=== PATIENT | female | born 1975 ===

== ENCOUNTER 2019-12-25 19:30 | Inpatient (IN) | payer MEDICARE, MEDICAID, SELFPAY ==
[2019-12-25 20:21] VITALS: BP 97/61; PULSE 118; RESP 19; TEMP 37; O2SAT 97
[2019-12-25 22:00] VITALS: BP 97/61; PULSE 118; RESP 19; TEMP 37; O2SAT 97
[2019-12-25 22:55] VITALS: BMI 22.6
[2019-12-25 22:57] VITALS: BMI 22.6
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
[2019-12-26 06:00] VITALS: RESP 18
[2019-12-26 21:35] VITALS: RESP 26
[2019-12-27 06:00] VITALS: BP 136/82; PULSE 89; RESP 22; TEMP 36.6; O2SAT 94
[2019-12-27] MEDS: ziprasidone hcl 40 mg Capsule PO ×2 (11:03→17:01)
--- NOTE | 2019-12-27 12:34 | P.PN_ITS ---
Subjective NPU Subjective: Interval history: Laura presented today continuing to be quite combative and frankly psychotic with limited clarity in her interactions with this sheet writer or others there are multiple situations where we had to work very hard to get her to comply with rules including returning small pencil after she made her selections for meals etc. We discussed the risks benefits and alternatives of restarting her medications including an increase in her Geodon but is unclear if she understood but she agreed to proceed as documented in this note receiving her medication. Mental Status Exam MSE Comments: This is a underweight white female in a wheelchair with limited dress, disheveled with adequate eye contact. No abnormal movements except for psychomotor agitation. Intermittently cooperative with exam in occasional mild to moderate distress. Speech was dysarthric and increased rate and volume that sometimes and whispering at others. Mood described as upset, affect and labile. Thought process disorganized. Thought content: Patient did not answer questions but then at times have aggression towards herself and others, there were no delusions reported but she does seem to have paranoia and is guarded at times. She does not appear to be attending to internal stimuli. Attention and concentration are impaired and memory is unreliable but none were formally tested. She is alert and oriented to person. Insight and judgment are impaired. Vitals/I&O/Wt Last Vital Signs Temp 97.8 F 12/27/19 06:00 Pulse 89 12/27/19 06:00 Resp 17 12/27/19 22:00 BP 136/82 12/27/19 06:00 Pulse Ox 94 12/27/19 06:00 A&P Assessment and plan (1) Psychosis: Status: Acute (2) Schizophrenia: Status: Acute (3) Methamphetamine dependence: Status: Acute Additional A&P Information This is a 44-year-old white female who presents with a long history of addiction including methamphetamine dependence/use with juan psychosis with reported history of psychotic disorder vis-?-vis schizophrenia who presents quite disorganized, aggressive and apparently off of her medication. 1. Continue current medication. Except: 2. Restart Geodon at 40 mg p.o. twice daily and continue her Depakote with Depakote ER 500 mg p.o. nightly 3. Encourage individual group and milieu therapy. 4. Continue to 15-minute checks for safety. 5. We will work with social work team for appropriate follow-up. Involuntary Hold Information 96 Hour Hold: 96 Hour Involuntary Admission: Yes 96 Hour Hold Ending Date: 12/31/19 96 Hour Hold Ending Time: 19:27 Attestations NPU Medical Necessity Statement*: Inpatient hospitalization is medically necessary and the clinically appropriate intervention at this time we will monitor medications and make changes as indicated. Likely length of stay 4-6 days. Coding Level of Care Code Acute Medication Technician for [facility] Fwd Diagnoses Psychosis F29 Schizophrenia F20.9 Methamphetamine dependence F15.20
[2019-12-27 14:00] VITALS: RESP 16
[2019-12-27] MEDS: LORazepam 2 mg/mL INJ 1 mL IM (14:59)
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
[2019-12-27] MEDS: trazodone 50 mg Tablet PO (20:50)
[2019-12-27 22:00] VITALS: RESP 17
--- NOTE | 2019-12-27 23:00 | PC.NURSE ---
PT REFUSED HS SCHEDULED MED.
--- NOTE | 2019-12-27 23:00 | PC.NURSE ---
pt refused scheduled hs med.
[2019-12-28 06:00] VITALS: BP 92/56; PULSE 112; RESP 22; TEMP 36.7; O2SAT 98
[2019-12-28] MEDS: ziprasidone hcl 40 mg Capsule PO ×2 (07:53→16:47)
[2019-12-28] MEDS: hyDROXYzine 25 mg Capsule 50 MG PO ×2 (09:01→17:03)
--- NOTE | 2019-12-28 09:01 | PC.NURSE ---
Addendum entered by Shaila Lozada LPN 12/28/19 10:13: PRN MED NOT YET EFFECTIVE SEE NEXT NURSES NOTE Original Note: PRN VISTARIL 50 MG GIVEN PO PER PT C/O ANXIETY. PT TEARFUL UP AT THE DESK, REQUESTING ANXIETY MED TOOK MEDICATION WITHOUT INCIDENT. WILL CONT TO MONITOR
[2019-12-28] MEDS: OLANZapine 5 mg ODT PO (10:10)
--- NOTE | 2019-12-28 10:10 | PC.NURSE ---
PRN ZYPREXA ZYDIS 5 MG GIVEN PO PER PT C/O AGITATION. PT STATED THAT THE PRN VISTARIL GIVEN PREVIOUSLY DIDN'T HELP HER! ALMOST GAVE HER THE OPPOSITE EFFECT! PT TOOK PRN ZYPREXA WITH STAFF ENCOURAGEMENT, LOOKED AT THE PACKAGE OF ZYPREXA AND SAID ABOUT TIME I GET SOMETHING FUCKING RIGHT AROUND HERE! WILL CONT TO MONITOR
--- NOTE | 2019-12-28 11:40 | P.PN_ITS ---
Subjective NPU Subjective: Interval history: Laura presents today continuing to be quite disorganized and resistant to taking her medication. She is continuing to fight staff and be quite repugnant and her language and demeanor. She continues with juan psychosis and inability to truly engage in treatment. Mental Status Exam MSE Comments: This is a underweight white female in a wheelchair with limited dress, disheveled with adequate eye contact. No abnormal movements except for psychomotor agitation. Intermittently cooperative with exam in occasional mild to moderate distress. Speech was dysarthric and increased rate and volume that sometimes and whispering at others. Mood described as expletives, affect labile. Thought process disorganized. Thought content: Patient did not answer questions but then at times have aggression towards herself and others, there were no delusions reported but she does seem to have paranoia and is guarded at times. She does not appear to be attending to internal stimuli. Attention and concentration are impaired and memory is unreliable but none were formally tested. She is alert and oriented to person. Insight and judgment are impaired. Vitals/I&O/Wt Last Vital Signs Temp 98.0 F 12/28/19 06:00 Pulse 112 H 12/28/19 06:00 Resp 22 H 12/28/19 06:00 BP 92/56 12/28/19 06:00 Pulse Ox 98 12/28/19 06:00 Weight last 48 hrs Weight 52.163 kg A&P Additional A&P Information (1) Psychosis: (2) Schizophrenia: (3) Methamphetamine dependence: This is a 44-year-old white female who presents with a long history of addiction including methamphetamine dependence/use with juan psychosis with reported history of psychotic disorder vis-?-vis schizophrenia who presents quite disorganized, aggressive and apparently off of her medication. 1. Continue current medication. 2. Encourage individual group and milieu therapy. 3. Continue to 15-minute checks for safety. 4. We will work with social work team for appropriate follow-up. 5. We will need to file for 21-day hold because likely only through force medication will be impact her situation psychiatrically. Involuntary Hold Information 96 Hour Hold: 96 Hour Involuntary Admission: Yes 96 Hour Hold Ending Date: 12/31/19 96 Hour Hold Ending Time: 19:27 Attestations NPU Medical Necessity Statement*: Inpatient hospitalization is medically necessary and the clinically appropriate intervention at this time we will monitor medications and make changes as indicated. Likely length of stay 7-10 days. Coding Level of Care Code Acute Safe Deposit Box Rental Clerk for [facility]
--- NOTE | 2019-12-28 11:53 | PC.SOCIAL ---
Addendum entered by RAUL uY 01/01/20 15:15: Notified Dr. Springer of court date since he will be taking over her care that morning. Original Note: no important message for medicare signed yet because she is not stable enough to even sign it. she is on a 96 hour hold.
[2019-12-28 13:57] VITALS: BP 102/72; PULSE 114; RESP 18; TEMP 36.7; O2SAT 97
[2019-12-28] MEDS: ziprasidone 20 mg/mL SDV IM (15:24)
--- NOTE | 2019-12-28 15:25 | PC.NURSE ---
Addendum entered by Shaila Lozada LPN 12/28/19 17:21: prn med effective no further c/o agitation. Original Note: PRN GEODON GEODON 20 MG GIVEN IM IN RIGHT BUTTOCK PER PT C/O SEVERE AGITATION/AGGRESSION. PT VERY AGITATED, CALLING STAFF CUNTS AND CURSING AT STAFF SAYING FUCK YOU BITCH STAFF ATTEMPTED TO HELP PT CHANGE INTO CLEAN UNDERWEAR, PT GETTING VIOLENT, HITTING & KICKING AT STAFF. TOOK SHOT AFTER MUCH STAFF ENCOURAGEMENT. PT PUT INTO CLEAN UNDERWEAR & SCRUB PANTS AND ASSISTED BACK TO BED WITH STAFF ASSIST X4. WILL CONT TO MONITOR.
--- NOTE | 2019-12-28 17:03 | PC.NURSE ---
Addendum entered by Shaila Lozada LPN 12/28/19 18:23: prn med effective no further c/o anxiety, pt currently resting quietly in bed in room, eyes closed, resp even et unlabored Original Note: PRN VISTARIL 50 MG GIVEN PO PER PT C/O ANXIETY. PT ASKING FOR SLEEPING MEDICINE TO HELP HER RELAX. TEARFUL AT TIMES, RAPID & RAMBLING SPEECH. WILL CONT TO MONITOR
[2019-12-28 22:00] VITALS: RESP 22
[2019-12-29 06:00] VITALS: BP 112/60; PULSE 107; RESP 23; O2SAT 96
--- NOTE | 2019-12-29 09:00 | PC.NURSE ---
DATABASES SOFTWARE CONSULTANT ATTEMPTED SEVERAL TIMES TO GET PT TO TAKE ORAL GEODON. PT RESISTANT AND WOULD HOLD MEDICATION CUP IN HER HAND. VOICED YO PT THAT DATABASES SOFTWARE CONSULTANT WOULD PLACE IN [place] AND GIVE HER AND SHE SAID OKAY. RETREIVED [place] BUT PT CONTINUED TO REFUSE. BEGAN YELLING AND CURSING TO DATABASES SOFTWARE CONSULTANT AND OTHER STAFF AND MUMBLING NON-SENSICAL WORDS.
[2019-12-29] MEDS: ziprasidone 20 mg/mL SDV IM (11:55)
--- NOTE | 2019-12-29 11:55 | PC.NURSE ---
PT WAS DISRUPTIVE AND SPITTING,CURSING AND RESISTING BEING CHANGED OUT OF HER WET/BLOODY CLOTHES. AUTOMOTIVE PORTER ADMINISTERED GEODON 20 MG IM X1 IN LEFT DELTOID. WILL CONT TO MONITOR AND FOLLOW UP NEEDED
--- NOTE | 2019-12-29 12:30 | PC.NURSE ---
CURRENTLY PT RESTING IN BED WITH EYES CLOSED. NO DISTRESS NOTED.
--- NOTE | 2019-12-29 13:40 | P.PN_ITS ---
Subjective NPU Subjective: Interval history: Laura continue to be combative at times. At times requiring as needed medications. Needing staff interventions for self care and at times putting her hands in orifices and trying to either touch or put the contents on people. Usually not redirectable grossly disorganized. Mental Status Exam MSE Comments: This is a underweight white female in a wheelchair with limited dress, disheveled with adequate eye contact. No abnormal movements except for psychomotor agitation. Intermittently cooperative with exam in occasional mild, moderate to extreme distress. Speech was dysarthric and increased rate and volume that sometimes and whispering at others. Mood described as expletives, affect labile. Thought process disorganized. Thought content: Patient did not answer questions but then at times have aggression towards herself and others, there were no delusions reported but she does seem to have paranoia and is guarded at times. She does not appear to be attending to internal stimuli. Attention and concentration are impaired and memory is unreliable but none were formally tested. She is alert and oriented to person. Insight and judgment are impaired. Vitals/I&O/Wt Last Vital Signs Temp 98.1 F 12/29/19 14:00 Pulse 107 H 12/29/19 14:00 Resp 23 H 12/29/19 14:00 BP 112/60 12/29/19 14:00 Pulse Ox 96 12/29/19 14:00 Weight last 48 hrs Weight 52.163 kg A&P Additional A&P Information (1) Psychosis: (2) Schizophrenia: (3) Methamphetamine dependence: This is a 44-year-old white female who presents with a long history of addiction including methamphetamine dependence/use with juan psychosis with reported history of psychotic disorder vis-?-vis schizophrenia who presents quite disorganized, aggressive and apparently off of her medication. 1. Continue current medication. 2. Encourage individual group and milieu therapy. 3. Continue to 15-minute checks for safety. 4. We will work with social work team for appropriate follow-up. 5. We will need to file for 21-day hold because likely only through force medication will be impact her situation psychiatrically. Involuntary Hold Information 96 Hour Hold: 96 Hour Involuntary Admission: Yes 96 Hour Hold Ending Date: 12/31/19 96 Hour Hold Ending Time: 19:27 Attestations NPU Medical Necessity Statement*: Inpatient hospitalization is medically necessary and the clinically appropriate intervention at this time we will monitor med [facility] and make changes as indicated. Likely length of stay 7-10 days. Coding Level of Care Code Acute Weight Control Engineer for [facility]
[2019-12-29 14:00] VITALS: BP 112/60; PULSE 107; RESP 23; TEMP 36.7; O2SAT 96
--- NOTE | 2019-12-29 17:00 | PC.NURSE ---
DIRECTOR TEEN POST ATTEMPTED TO ADMINISTER GEODON TO PT BUT PT TOOK AND PUT MED IN HER HAND DIRECTOR TEEN POST HANDED PT A GLASS OF WATER,BUT PT DUMPED WATER AND WOULDN'T PLACE MEDICATION IN HER MOUTH. STARTED TO CRUMBLE PILL BUT DIRECTOR TEEN POST RETRIEVED MEDICATION.
[2019-12-29] MEDS: divalproex ER 500 mg Tablet (24H) PO (21:39)
[2019-12-29] MEDS: trazodone 50 mg Tablet PO (21:45)
--- NOTE | 2019-12-29 22:45 | PC.NURSE ---
PT REFUSED SCHEDULED HS MED.
[2019-12-30 06:00] VITALS: BP 107/64; PULSE 88; RESP 19; TEMP 36.3; O2SAT 95
[2019-12-30] MEDS: ziprasidone hcl 40 mg Capsule PO ×2 (08:17→18:29)
--- NOTE | 2019-12-30 09:00 | PC.NURSE ---
Refused scheduled Geodon this morning at 0900. pt took pill in her mouth, refused to do oral check that she actually swallowed medication. staff went to hand pt drink of water, staff observed pt take her hand to her mouth. this nurse suspected that pt spit pill into hand. staff asked pt to please open her closed fist so staff could observe and make sure that no pill was in hand. pt opened arms wide and opened palms quickly, staff did not see any pill in hand at that time. breakfast tray was left in room so pt could eat in private. when staff picked up breakfast tray 30-40 minutes later, staff found Geodon pill wrapped up in napkin. staff disposed pill into sharps box at the nurses station. banquet server notified of behavior & that pt did not take pill.
[2019-12-30 14:00] VITALS: BP 112/72; PULSE 82; RESP 19; TEMP 36.4
[2019-12-30] MEDS: ziprasidone 20 mg/mL SDV IM (14:44)
--- NOTE | 2019-12-30 14:44 | PC.NURSE ---
PRN GEODON 20 MG GIVEN IM IN LEFT BUTTOCK PER PT C/O INCREASED AGITATION. CURSING AT STAFF, CALLING STAFF BITCHES AND SAYING I'LL KILL YOU IF YOU DON'T LEAVE BITCH. PT HAD BOWEL MOVEMENT, INCONTINENT OF BOWEL/BLADDER. STAFF X4 ASSISTED PT TO CHANGE INTO CLEAN UNDERWEAR AND PANTS. PT ASSISTED SAFELY BACK INTO HER WHEELCHAIR. TOOK INJECTION WITHOUT INCIDENT. WILL CONT TO MONITOR.
--- NOTE | 2019-12-30 16:28 | P.PN_ITS ---
Subjective NPU Subjective: Interval history: Laura continue to be combative at times. At times requiring as needed medications. Needing staff interventions for self care and at times putting her hands in orifices and trying to either touch or put the contents on people. Usually not redirectable grossly disorganized. At times incontinent of urine and feces. Unchanged and often not taking her medication to some degree willfully. Mental Status Exam MSE Comments: This is a underweight white female in a wheelchair with limited dress, disheveled with adequate eye contact. No abnormal movements except for psychomotor agitation. Intermittently cooperative with exam in occasional mild, moderate to extreme distress. Speech was dysarthric and increased rate and volume that sometimes and whispering at others. Mood described as expletives, affect labile. Thought process disorganized. Thought content: Patient did not answer questions but then at times have aggression towards herself and others, there were no delusions reported but she does seem to have paranoia and is guarded at times. She does not appear to be attending to internal stimuli. Attention and concentration are impaired and memory is unreliable but none were formally tested. She is alert and oriented to person. Insight and judgment are impaired. Vitals/I&O/Wt Last Vital Signs Temp 97.6 F 12/30/19 14:00 Pulse 82 12/30/19 14:00 Resp 17 12/30/19 19:57 BP 112/72 12/30/19 14:00 Pulse Ox 95 12/30/19 06:00 12/30/19 12/30/19 12/31/19 14:59 22:59 06:59 Intake Total 120 / 120 Balance 120 / 120 Weight last 48 hrs Weight 52.163 kg A&P Additional A&P Information (1) Psychosis: (2) Schizophrenia: (3) Methamphetamine dependence: This is a 44-year-old white female who presents with a long history of addiction including methamphetamine dependence/use with juan psychosis with reported history of psychotic disorder vis-?-vis schizophrenia who presents quite disorganized, aggressive and apparently off of her medication. 1. Continue current medication. 2. Encourage individual group and milieu therapy. 3. Continue to 15-minute checks for safety. 4. We will work with social work team for appropriate follow-up. 5. We will need to file for 21-day hold tomorrow because likely only through force medication will be impact her situation psychiatrically. Involuntary Hold Information 96 Hour Hold: 96 Hour Involuntary Admission: Yes 96 Hour Hold Ending Date: 12/31/19 96 Hour Hold Ending Time: 19:27 Attestations NPU Medical Necessity Statement*: Inpatient hospitalization is medically necessary and the clinically appropriate intervention at this time we will monitor medications and make changes as indicated. Likely length of stay 7-10 days. Coding Level of Care Code Acute Adult Ministries Director for [facility]
[2019-12-30 19:57] VITALS: RESP 17
[2019-12-31 06:00] VITALS: BP 144/100; PULSE 116; RESP 19; TEMP 36.1; O2SAT 96
--- NOTE | 2019-12-31 07:59 | PC.NURSE ---
REFUSED TO TAKE SCHEDULED GEODON THIS MORNING. STAFF ATTEMPTED TO PUT MEDICINE IN [place], PT REFUSED TO TAKE IT. PT ASSISTED BACK TO BED BY STAFF MEMBERS X3.
--- NOTE | 2019-12-31 12:11 | P.PN_ITS ---
Subjective NPU Subjective: Interval history: Laura presents today continuing to speak nonsensical and be a struggle to take medication. She had one level says she does not want to stay but in another level is clearly not able to make informed consent and is just a bucket of impulsivity and her decision making. She continues to speak and aggressive ways with foul language and demonstrate help seeking help rejecting behavior with a psychotic flare. Staff continue to assist her with her ADLs. Mental Status Exam MSE Comments: This is a underweight white female in a wheelchair with limited dress, disheveled with adequate eye contact. No abnormal movements except for psychomotor agitation. Intermittently cooperative with exam in occasional mild, moderate to extreme distress. Speech was dysarthric and increased rate and volume that sometimes and whispering at others. Mood not described, affect labile. Thought process disorganized. Thought content: Patient did not answer questions but then at times have aggression towards herself and others, there were no delusions reported but she does seem to have paranoia and is guarded at times. She does not appear to be attending to internal stimuli. Attention and concentration are impaired and memory is unreliable but none were formally tested. She is alert and oriented to person. Insight and judgment are impaired. Vitals/I&O/Wt Last Vital Signs Temp 97.0 F L 12/31/19 06:00 Pulse 116 H 12/31/19 06:00 Resp 19 H 12/31/19 06:00 BP 144/100 12/31/19 06:00 Pulse Ox 96 12/31/19 06:00 A&P Additional A&P Information (1) Psychosis: (2) Schizophrenia: (3) Methamphetamine dependence: This is a 44-year-old white female who presents with a long history of addiction including methamphetamine dependence/use with juan psychosis with reported history of psychotic disorder vis-?-vis schizophrenia who presents quite disorganized, aggressive and apparently off of her medication. 1. Continue current medication. 2. Encourage individual group and milieu therapy. 3. Continue to 15-minute checks for safety. 4. We will work with social work team for appropriate follow-up. 5. We will need to filed 21-day hold. Involuntary Hold Information 96 Hour Hold: 96 Hour Involuntary Admission: Yes 96 Hour Hold Ending Date: 12/31/19 96 Hour Hold Ending Time: 19:27 Attestations NPU Medical Necessity Statement*: Inpatient hospitalization is medically necessary and the clinically appropriate intervention at this time we will monitor medications and make changes as indicated. Likely length of stay 7-10 days. Coding Level of Care Code Acute Municipal Services Manager for Flori Carlisle
[2019-12-31 14:00] VITALS: RESP 16
--- NOTE | 2019-12-31 17:06 | PC.NURSE ---
refused scheduled Geodon pill this evening
[2019-12-31] MEDS: ziprasidone 20 mg/mL SDV IM (17:07)
--- NOTE | 2019-12-31 17:08 | PC.NURSE ---
PRN GEODON 20 MG GIVEN IM IN RIGHT DELTOID PER PT C/O INCREASED ANXIETY/AGITATION/PSYCHOSIS. PT TALKING NONSENSICAL STATEMENTS AT THE DESK, TOLD STAFF GIVE IT TO HIM SO HE CAN ! I DON'T WANT TO ! WHY DON'T YOU JUST TAKE IT THEN. PT TEARFUL, CURSING AT STAFF AGAIN CALLING NURSING STAFF BITCHES AND HAVING HOSTILE DEMEANOR. TOOK INJECTION WITHOUT INCIDENT. ASSISTED BACK TO BED WITH STAFF ASSIST X3. WILL CONT TO MONITOR
[2019-12-31 21:42] VITALS: PULSE 72; RESP 16; TEMP 37; O2SAT 97
--- NOTE | 2019-12-31 21:58 | PC.NURSE ---
PT REFUSED SCHEDULED HS MED.
[2020-01-01] MEDS: LORazepam 2 mg/mL INJ 1 mL IM (02:12)
--- NOTE | 2020-01-01 02:16 | PC.NURSE ---
CNAs ATTEMPTING TO CHANGE PT'S PULLUP DUE TO INCONTINENCE, PT BECOMING VERY AGITATED AND YELLING VERY LOUDLY AND TRYING TO HIT STAFF WITH HER FISTS. PT GIVEN ATIVAN 2MG IM FOR SEVER AGITATION AT THIS TIME.
[2020-01-01] MEDS: divalproex ER 500 mg Tablet (24H) PO ×2 (03:30→23:04)
[2020-01-01 05:44] VITALS: BP 110/80; PULSE 120; RESP 16; TEMP 36.6; O2SAT 92
[2020-01-01] MEDS: ziprasidone hcl 40 mg Capsule PO ×2 (07:33→17:23)
--- NOTE | 2020-01-01 11:19 | PC.RESP ---
SMOKING CESSATION INFORMATION SENT TO PATIENT.
[2020-01-01 13:27] VITALS: BP 93/58; PULSE 115; RESP 18; TEMP 36.4; O2SAT 99
--- NOTE | 2020-01-01 13:59 | P.PN_ITS ---
Subjective NPU Subjective: Interval history: Discussed with Laura the fact that we were filing a 21-day hold. She did not really seem to identify what that specifically meant but was continuing to behave as she has since her admission with labile affect, cussing at people screaming at people having poor hygiene and at times purposefully forcing other people to deal with her poor hygiene. Mental Status Exam MSE Comments: This is a underweight white female in a wheelchair with limited dress, disheveled with adequate eye contact. No abnormal movements except for psychomotor agitation. Intermittently cooperative with exam in occasional mild, moderate to extreme distress. Speech was dysarthric and increased rate and volume that sometimes and whispering at others. Mood not described, affect labile. Thought process disorganized. Thought content: Patient did not answer questions but then at times have aggression towards herself and others, there were no delusions reported but she does seem to have paranoia and is guarded at times. She does not appear to be attending to internal stimuli. Attention and concentration are impaired and memory is unreliable but none were formally tested. She is alert and oriented to person. Insight and judgment are impaired. Vitals/I&O/Wt Last Vital Signs Temp 98.6 F 01/01/20 22:00 Pulse 110 H 01/01/20 22:00 Resp 16 01/01/20 22:00 BP 105/65 01/01/20 22:00 Pulse Ox 94 01/01/20 22:00 A&P Additional A&P Information (1) Psychosis: (2) Schizophrenia: (3) Methamphetamine dependence: This is a 44-year-old white female who presents with a long history of addiction including methamphetamine dependence/use with juan psychosis with reported history of psychotic disorder vis-?-vis schizophrenia who presents quite disorganized, aggressive and apparently off of her medication. 1. Continue current medication. 2. Encourage individual group and milieu therapy. 3. Continue to 15-minute checks for safety. 4. We will work with social work team for appropriate follow-up. 5. Will advise Dr. Springer of the 21 day hold date. Involuntary Hold Information 96 Hour Hold: 96 Hour Involuntary Admission: Yes 96 Hour Hold Ending Date: 12/31/19 96 Hour Hold Ending Time: 19:27 Attestations NPU Medical Necessity Statement*: Inpatient hospitalization is medically necessary and the clinically appropriate intervention at this time. We will continue to monitor medications and make adjustments as indicated. We will await the 21-day hold determination so that we can make more appropriate medication decisions. Likely length of stay 7 to 10 days. Coding Level of Care Code Acute Emergency Vehicle Operator for Flori Carlisle
[2020-01-01] MEDS: nicotine 21 mg Patch 1 PATCH TRANSDERMA (17:52)
[2020-01-01 22:00] VITALS: BP 105/65; PULSE 110; RESP 16; TEMP 37; O2SAT 94
[2020-01-02] MEDS: OLANZapine 5 mg ODT PO (03:49)
[2020-01-02] MEDS: ondansetron 4 MG Tablet PO (03:49)
[2020-01-02 06:00] VITALS: BP 105/69; PULSE 106; RESP 16; TEMP 36.4; O2SAT 97
[2020-01-02] MEDS: ziprasidone hcl 40 mg Capsule PO (07:58)
[2020-01-02] MEDS: calcium carbonate 500 mg Chew Tablet PO (09:45)
--- NOTE | 2020-01-02 12:06 | PC.SOCIAL ---
patient's belt molder came by to see patient today. hearing for 21 day hold is tomorrow.
[2020-01-02 14:00] VITALS: BP 99/64; PULSE 119; RESP 22; TEMP 37; O2SAT 97
--- NOTE | 2020-01-02 15:02 | PM.NPN ---
Subjective NPU Subjective: Interval history: Laura presented today unchanged and her chaotic behavior. There appears to be no rhyme or reason to how she responds and whether she is welcoming to her presents or dismissive. She very much demands or requests that he spent time with her and then cusses you out or says rude things regardless. She is eating okay but sleep is not great. Mental Status Exam MSE Comments: This is a underweight white female in a wheelchair with limited dress, disheveled with adequate eye contact. No abnormal movements except for psychomotor agitation. Intermittently cooperative with exam in occasional mild, moderate to extreme distress. Speech was dysarthric and increased rate and volume that sometimes and whispering at others. Mood not described, affect labile. Thought process disorganized. Thought content: Patient did not answer questions but then at times have aggression towards herself and others, there were no delusions reported but she does seem to have paranoia and is guarded at times. She does not appear to be attending to internal stimuli. Attention and concentration are impaired and memory is unreliable but none were formally tested. She is alert and oriented to person. Insight and judgment are impaired. Vitals/I&O/Wt Last Vital Signs Temp 97.6 F 01/02/20 06:00 Pulse 106 H 01/02/20 06:00 Resp 16 01/02/20 06:00 BP 105/69 01/02/20 06:00 Pulse Ox 97 01/02/20 06:00 A&P Additional A&P Information (1) Psychosis: (2) Schizophrenia: (3) Methamphetamine dependence: This is a 44-year-old white female who presents with a long history of addiction including methamphetamine dependence/use with juan psychosis with reported history of psychotic disorder vis-?-vis schizophrenia who presents quite disorganized, aggressive and apparently off of her medication. 1. Continue current medication. 2. Encourage individual group and milieu therapy. 3. Continue to 15-minute checks for safety. 4. We will work with social work team for appropriate follow-up. 5. Will advise Dr. Springer of the 21 day hold date. Involuntary Hold Information 96 Hour Hold: 96 Hour Involuntary Admission: Yes 96 Hour Hold Ending Date: 12/31/19 96 Hour Hold Ending Time: 19:27 Attestations NPU Medical Necessity Statement*: Inpatient hospitalization is medically necessary and the clinically appropriate intervention at this time. We will continue to monitor medications and make adjustments as indicated. We will await the 21-day hold determination so that we can make more appropriate medication decisions. Likely length of stay 7 to 10 days. Coding Level of Care Code Acute Display Mechanic for Flori Carlisle
[2020-01-02] MEDS: ziprasidone 20 mg/mL SDV IM (21:49)
[2020-01-02 22:00] VITALS: RESP 26
[2020-01-03 06:00] VITALS: BP 138/89; PULSE 110; RESP 24; TEMP 36.6; O2SAT 98
--- NOTE | 2020-01-03 07:38 | PM.NPN ---
Subjective NPU Subjective: Interval history: The patient has not significantly changed. I came in to see her yesterday in order to familiarize myself with the EMR and to evaluate her prior to today's hearing, which is pending in about an hour. She is quite mercurial, her affect and mood very angry from moment to moment, now jolly and giggling, now distraught and weeping abjectly. As of yesterday, she has been refusing medication, which she desperately needs. We may have to go to [facility]. Nursing staff reports she has not put her hands in her orifices in the last 2 days. I noted with interest, upon review of records from referring hospital, that she was said to have been admitted several times in [place] with diagnosis of delirium. She also is said to have a diagnosis of bipolar disorder with psychosis, which leads me to consider schizoaffective disorder, bipolar type as her underlying pathology. Right now, however, delirium is certainly worthy of consideration. Her working diagnosis here is methamphetamine abuse. However there is no evidence of methamphetamine in her system nor was there in the testing done at the referring hospital. I do not doubt that she will abuse meth at the first opportunity but she has not had any in her system since the beginning of this particular episode. Medications: Reviewed: Yes Medication Review Details: Current Medications Acetaminophen (Tylenol) 650 mg PO Q4H PRN PRN Reason: MILD PAIN Benztropine Mesylate (Cogentin) 1 mg PO BID PRN PRN Reason: Mild Extrapyramidal symptoms Calcium Carbonate (Tums) 500 mg PO Q4H PRN PRN Reason: INDIGESTION Last Admin: 01/02/20 09:45 Dose: 500 mg Documented by: Diphenhydramine HCl (Benadryl) 50 mg IM ONCE PRN PRN Reason: Severe Extrapyramidal Symptoms Diphenhydramine HCl (Benadryl) 50 mg IM Q4H PRN PRN Reason: Severe Aggression Divalproex Sodium (Depakote Er) 500 mg PO BEDTIME BART Last Admin: 01/02/20 21:45 Dose: Not Given Documented by: Hydroxyzine Pamoate (Vistaril) 50 mg PO Q6H PRN PRN Reason: ANXIETY Last Admin: 12/28/19 17:03 Dose: 50 mg Documented by: Loperamide HCl (Imodium Capsule) 2 mg PO Q6H PRN PRN Reason: DIARRHEA Nicotine (Nicoderm 21 Mg Patch) 1 patch TRANSDERMA DAILY PRN PRN Reason: NICOTINE WITHDRAWAL Last Admin: 01/01/20 17:52 Dose: 1 patch Documented by: Olanzapine (Zyprexa Zydis) 5 mg PO Q4H PRN PRN Reason: Agitation/Psychosis Last Admin: 01/02/20 03:49 Dose: 5 mg Documented by: Ondansetron HCl (Zofran) 4 mg PO Q6H PRN PRN Reason: NAUSEA AND VOMITING Last Admin: 01/02/20 03:49 Dose: 4 mg Documented by: Trazodone HCl (Desyrel) 50 mg PO BEDTIME PRN PRN Reason: SLEEP Last Admin: 12/27/19 20:50 Dose: 50 mg Documented by: Ziprasidone (Geodon) 40 mg PO 0800,1700 BART Last Admin: 01/02/20 18:00 Dose: Not Given Documented by: Ziprasidone (Geodon) 20 mg IM BID PRN PRN Reason: severe agitation Last Admin: 01/02/20 21:49 Dose: 20 mg Documented by: Mental Status Exam MSE Comments: This is a 44-year-old female who appears far older than her stated age. She is clearly not in close contact with reality. Mood is rapidly changing, as is affect. Thought processes are utterly scrambled and seemed to be racing. There is certainly no blocking. I do not have direct evidence of any internal stimulation or psychotic material other than the thought disorder. Cognitive functions are completely derailed. The perception of reality is nonexistent and normal cognitive functions cannot be accurately assessed. She does not verbalize any suicidal ideation but she is so deranged is not possible to accurately assess risk of suicidal or homicidal intent. Vitals/I&O/Wt Last Vital Signs Temp 97.8 F 01/03/20 06:00 Pulse 110 H 01/03/20 06:00 Resp 24 H 01/03/20 06:00 BP 138/89 01/03/20 06:00 Pulse Ox 98 01/03/20 06:00 Physical Exam Narrative: EXAM NARRATIVE: Patient is wheelchair-bound. It is not possible to do a formal physical exam but she has been observed by staff to be able to stand, although not walk. A&P Assessment and plan (1) Delirium due to another medical condition, acute, mixed level of activity: Patient is actively delirious now. We need to initiate pharmacotherapy, which she declines. Status: Acute Involuntary Hold Information 96 Hour Hold: 96 Hour Involuntary Admission: Yes 96 Hour Hold Ending Date: 12/31/19 96 Hour Hold Ending Time: 19:27 Attestations NPU Medical Necessity Statement*: This patient is severely ill. I anticipate 10 to 12 nights additional hospitalization. Time Spent in Patient Care: Greater than 35 minutes (>than 50% of time spent in counselling and/or direct pt care on unit). This is a complex case. I am preparing for testimony. I have made copies of the record and reviewed the record twice and evaluated the patient today and yesterday. Coding Level of Care Code Acute Electronic Warfare Technician for Flori Carlisle Diagnoses Delirium due to another medical condition, acute, mixed level of activity F05
--- NOTE | 2020-01-03 08:30 | PC.NURSE ---
patient note patient is off unit for court.
--- NOTE | 2020-01-03 08:49 | PC.SOCIAL ---
important messages for medicare to be given when patient is able to receive the message. Today, patient has [address]. patient has been reported to not be taking medication and has been agitated. Yesterday this worker tried to have conversation with her and she was very irritable. She had many words but it was challenging to hear her completely. She rambled quite a bit.
--- NOTE | 2020-01-03 09:00 | PC.NURSE ---
patient note patient back on unit.
[2020-01-03] MEDS: ziprasidone 20 mg/mL SDV IM (10:12)
--- NOTE | 2020-01-03 10:13 | PC.NURSE ---
PATIENT BEHAVIOR GEODON 20MG IM TO RIGHT DORSOGLUTEAL. PATIENT YELLING AND HITTING THE GLASS AROUND THE NURSES STATION. STAFF HELPED PATIENT TO HER ROOM IN WHEEL CHAIR. STAFF HELPED PATIENT STAND WHILE GIVEN INJECTION. PATIENT CALM AND COOPERATIVE WHILE GIVEN INJECTION. WILL CONTINUE TO MONITOR FOR MEDICATION EFFECTIVENESS.
--- NOTE | 2020-01-03 11:20 | PC.NURSE ---
GEODON 20MG IM FOLLOW UP MEDICATION NOT EFFECTIVE. PATIENT IS YELLING IN ROOM AND HITTING THE WALL.
[2020-01-03] MEDS: OLANZapine 10 mg VIAL 5 MG IM (11:30)
--- NOTE | 2020-01-03 11:30 | PC.NURSE ---
Addendum entered by Christi Woods LPN 01/03/20 12:23: MEDICATION EFFECTIVE. PATIENT IS LYING IN BED RESTING, RESPIRATIONS EVEN AND UNLABORED. Original Note: PRN ZYPREXA 5MG IM AND ATIVAN 2MG IM ZYPREXA 5MG IM TO LEFT DORSOGLUTEAL AND ATIVAN 2MG TO RIGHT DORSOGLUTEAL. STAFF HELP PATIENT UP AND PATIENT TOOK MEDICATION WILLINGLY. PATIENT WAS TEARFUL. WILL CONTINUE TO [id number] FOR MEDICATION EFFECTIVENESS.
[2020-01-03] MEDS: LORazepam 2 mg/mL INJ 1 mL IM (11:37)
[2020-01-03 14:00] VITALS: BP 98/63; PULSE 99; RESP 18; TEMP 36.9; O2SAT 99
[2020-01-03] MEDS: ziprasidone hcl 40 mg Capsule PO (18:04)
[2020-01-03 20:39] VITALS: BP 99/62; PULSE 108; RESP 20; TEMP 36.9; O2SAT 100
[2020-01-04] MEDS: calcium carbonate 500 mg Chew Tablet PO (02:59)
[2020-01-04 06:00] VITALS: BP 89/60; PULSE 107; RESP 24; TEMP 36.7; O2SAT 97
[2020-01-04] MEDS: ziprasidone hcl 40 mg Capsule PO ×2 (08:40→17:22)
--- NOTE | 2020-01-04 09:31 | PM.NPN ---
Subjective NPU Subjective: Interval history: Visit to the patient's room yielded very little new information. She sits on the end of the bed, mumbling to the floor. I cannot figure out what she is saying. Her mind wanders randomly. Fortunately she has not been as frightened or angry as she had previously been Mental Status Exam MSE Comments: The patient remains confused, disoriented and unable to remember from moment to moment. She does not seem to be able to string together a coherent thought. She is however much calmer than she had previously been. Cognition remains grossly impaired and placement will probably be the most likely disposition. Guardianship would certainly be helpful. Vitals/I&O/Wt Last Vital Signs Temp 98.1 F 01/04/20 06:00 Pulse 107 H 01/04/20 06:00 Resp 24 H 01/04/20 06:00 BP 89/60 01/04/20 06:00 Pulse Ox 97 01/04/20 06:00 A&P Assessment and plan (1) Bipolar disorder: Pharmacotherapy and millieu. Status: Acute (2) Delirium due to another medical condition, acute, mixed level of activity: Status: Acute Involuntary Hold Information 96 Hour Hold: 96 Hour Involuntary Admission: Yes 96 Hour Hold Ending Date: 12/31/19 96 Hour Hold Ending Time: 19:27 21 Day Hold: 21 Day Involuntary Hold: Yes 21 Day Hold Start Date: 01/03/20 21 Day Hold Start Time: 10:09 21 Day Hold End Date: 02/01/20 21 Day Hold End Time: 10:09 Attestations NPU Medical Necessity Statement*: I anticipate 10-12 midnights additional hospital stay Time Spent in Patient Care: Greater than 35 minutes (>than 50% of time spent in counselling and/or direct pt care on unit). Coding Level of Care Code Acute Collection Correspondent for Flori Carlisle Diagnoses Bipolar disorder F31.9 Delirium due to another medical condition, acute, mixed level of activity F05
[2020-01-04] MEDS: OLANZapine 10 mg VIAL 5 MG IM (13:01)
[2020-01-04] MEDS: LORazepam 2 mg/mL INJ 1 mL IM (13:01)
[2020-01-04 14:00] VITALS: BP 101/61; PULSE 103; RESP 18; TEMP 36.9; O2SAT 99
[2020-01-04 22:00] VITALS: RESP 16
--- NOTE | 2020-01-05 00:22 | PC.NURSE ---
DEPAKOTE PT REFUSED SCHEDULED DEPAKOTE.
[2020-01-05] MEDS: LORazepam 2 mg/mL INJ 1 mL IM ×2 (00:46→10:14)
[2020-01-05] MEDS: OLANZapine 10 mg VIAL 5 MG IM ×2 (00:46→10:13)
--- NOTE | 2020-01-05 00:48 | PC.NURSE ---
PRN ATIVAN & ZYPREXA PT GIVEN 2 MG ATIVAN IM LEFT HIP BY AIDEE ANDINO AND 5 MG ZYPREXA RIGHT HIP BY BAO LOPEZ RN FOR INCREASING AGITATION. PT AT THE NURSES STATION HITTING THE GLASS AND YELLING. PT WAS TAKEN TO HER ROOM VIA ALBERTO AND HELPED TO STAND. PT TOLERATED INJECTIONS WELL. WILL MONITOR FOR MEDICATION EFFECTIVENESS.
[2020-01-05 06:00] VITALS: BP 101/26; PULSE 102; RESP 18; TEMP 36.7; O2SAT 98
--- NOTE | 2020-01-05 08:14 | PM.NPN ---
Subjective NPU Subjective: Interval history: The patient is improving! The first thing she said, upon laying on eyes on me, was, can I have a hug? She is not agitated and she seems to be very much in contact with reality. She does not grasp at my clothes, she does not cry out nor does she act inappropriately. Medications: Reviewed: Yes Medication Review Details: Current Medications Acetaminophen (Tylenol) 650 mg PO Q4H PRN PRN Reason: MILD PAIN Benztropine Mesylate (Cogentin) 1 mg PO BID PRN PRN Reason: Mild Extrapyramidal symptoms Calcium Carbonate (Tums) 500 mg PO Q4H PRN PRN Reason: INDIGESTION Last Admin: 01/04/20 02:59 Dose: 500 mg Documented by: Diphenhydramine HCl (Benadryl) 50 mg IM ONCE PRN PRN Reason: Severe Extrapyramidal Symptoms Diphenhydramine HCl (Benadryl) 50 mg IM Q4H PRN PRN Reason: Severe Aggression Divalproex Sodium (Depakote Er) 500 mg PO BEDTIME BART Last Admin: 01/04/20 21:50 Dose: Not Given Documented by: Hydroxyzine Pamoate (Vistaril) 50 mg PO Q6H PRN PRN Reason: ANXIETY Last Admin: 12/28/19 17:03 Dose: 50 mg Documented by: Loperamide HCl (Imodium Capsule) 2 mg PO Q6H PRN PRN Reason: DIARRHEA Lorazepam (Ativan) 2 mg IM Q4H PRN PRN Reason: AGITATION Last Admin: 01/05/20 00:46 Dose: 2 mg Documented by: Nicotine (Nicoderm 21 Mg Patch) 1 patch TRANSDERMA DAILY PRN PRN Reason: NICOTINE WITHDRAWAL Last Admin: 01/01/20 17:52 Dose: 1 patch Documented by: Olanzapine (Zyprexa Zydis) 5 mg PO Q4H PRN PRN Reason: Agitation/Psychosis Last Admin: 01/02/20 03:49 Dose: 5 mg Documented by: Olanzapine (Zyprexa) 5 mg IM Q4H PRN PRN Reason: SEVERE AGITATION Last Admin: 01/05/20 00:46 Dose: 5 mg Documented by: Ondansetron HCl (Zofran) 4 mg PO Q6H PRN PRN Reason: NAUSEA AND VOMITING Last Admin: 01/02/20 03:49 Dose: 4 mg Documented by: Trazodone HCl (Desyrel) 50 mg PO BEDTIME PRN PRN Reason: SLEEP Last Admin: 12/27/19 20:50 Dose: 50 mg Documented by: Ziprasidone (Geodon) 40 mg PO 0800,1700 BART Last Admin: 01/04/20 17:22 Dose: 40 mg Documented by: Ziprasidone (Geodon) 20 mg IM BID PRN PRN Reason: severe agitation Last Admin: 01/03/20 10:12 Dose: 20 mg Documented by: Mental Status Exam MSE Comments: The patient appears to be oriented today. Mood is cheerful and affect is appropriate. She is not screaming, nor struggling, nor is she grasping at our clothes. She is still not cognitively functioning at a high level but this is a significant improvement. It is not possible to assess risk but it appears to be diminishing. She remains impaired with respect to insight and judgment. She has not the wherewithal to assure her own safety. Vitals/I&O/Wt Last Vital Signs Temp 98.1 F 01/05/20 06:00 Pulse 102 H 01/05/20 06:00 Resp 18 01/05/20 06:00 BP 101/26 01/05/20 06:00 Pulse Ox 98 01/05/20 06:00 Involuntary Hold Information 96 Hour Hold: 96 Hour Involuntary Admission: Yes 96 Hour Hold Ending Date: 12/31/19 96 Hour Hold Ending Time: 19:27 21 Day Hold: 21 Day Involuntary Hold: Yes 21 Day Hold Start Date: 01/03/20 21 Day Hold Start Time: 10:09 21 Day Hold End Date: 02/01/20 21 Day Hold End Time: 10:09 Attestations NPU Medical Necessity Statement*: The patient is improving but I anticipate 10-12 nights additional stay Time Spent in Patient Care: Greater than 35 minutes Coding Level of Care Code Acute Ballet Master/Mistress for Flori Carlisle
[2020-01-05] MEDS: ziprasidone hcl 40 mg Capsule PO ×2 (09:50→18:13)
--- NOTE | 2020-01-05 10:19 | PC.NURSE ---
PATIENT NOTE: PT GIVEN ATIVAN 2MG, 5 MG ZYPREXA FOR AGITATION.
[2020-01-05 14:00] VITALS: BP 101/26; PULSE 102; RESP 18; TEMP 36.7; O2SAT 98
[2020-01-05 22:00] VITALS: BP 103/62; PULSE 118; RESP 18; TEMP 36.6; O2SAT 97
[2020-01-06] MEDS: LORazepam 2 mg/mL INJ 1 mL IM (05:23)
[2020-01-06] MEDS: OLANZapine 10 mg VIAL 5 MG IM (05:23)
--- NOTE | 2020-01-06 05:33 | PC.NURSE ---
PRN ATIVAN & ZYPREXA PT GIVEN 2 MG ATIVAN BY AIDEE ANDINO AND 5 MG ZYPREXA BY BAO LOPEZ RN FOR INCREASING AGITATION. PT AT THE NURSES STATION YELLING AND PULLING PAPERS OFF THE WINDOW. AFTER SEVERAL ATTEMPTS TO VERBALLY REDIRECT. PT WAS TAKEN TO HER ROOM VIA ALBERTO AND HELPED TO STAND. PT TOLERATED INJECTIONS WELL. WILL MONITOR FOR MEDICATION EFFECTIVENESS.
[2020-01-06 06:00] VITALS: BP 107/56; PULSE 115; RESP 20; TEMP 36.6; O2SAT 96
[2020-01-06] MEDS: ziprasidone hcl 40 mg Capsule PO ×2 (09:06→17:36)
[2020-01-06 14:00] VITALS: BP 102/67; PULSE 102; RESP 20; TEMP 37.1; O2SAT 98
--- NOTE | 2020-01-06 19:46 | PM.NPN ---
Subjective NPU Subjective: Interval history: The patient is calmer and more content and peaceful. There are no calls of sorrow, no limitations. The patient's regimen actually works when given to her. Problem is, she has not ever consistently complied with it in an outpatient environment. Medications: Reviewed: Yes Medication Review Details: Current Medications Acetaminophen (Tylenol) 650 mg PO Q4H PRN PRN Reason: MILD PAIN Benztropine Mesylate (Cogentin) 1 mg PO BID PRN PRN Reason: Mild Extrapyramidal symptoms Calcium Carbonate (Tums) 500 mg PO Q4H PRN PRN Reason: INDIGESTION Last Admin: 01/04/20 02:59 Dose: 500 mg Documented by: Diphenhydramine HCl (Benadryl) 50 mg IM ONCE PRN PRN Reason: Severe Extrapyramidal Symptoms Diphenhydramine HCl (Benadryl) 50 mg IM Q4H PRN PRN Reason: Severe Aggression Divalproex Sodium (Depakote Er) 500 mg PO BEDTIME BART Last Admin: 01/05/20 21:25 Dose: Not Given Documented by: Hydroxyzine Pamoate (Vistaril) 50 mg PO Q6H PRN PRN Reason: ANXIETY Last Admin: 12/28/19 17:03 Dose: 50 mg Documented by: Loperamide HCl (Imodium Capsule) 2 mg PO Q6H PRN PRN Reason: DIARRHEA Lorazepam (Ativan) 2 mg IM Q4H PRN PRN Reason: AGITATION Last Admin: 01/06/20 05:23 Dose: 2 mg Documented by: Nicotine (Nicoderm 21 Mg Patch) 1 patch TRANSDERMA DAILY PRN PRN Reason: NICOTINE WITHDRAWAL Last Admin: 01/01/20 17:52 Dose: 1 patch Documented by: Olanzapine (Zyprexa Zydis) 5 mg PO Q4H PRN PRN Reason: Agitation/Psychosis Last Admin: 01/02/20 03:49 Dose: 5 mg Documented by: Olanzapine (Zyprexa) 5 mg IM Q4H PRN PRN Reason: SEVERE AGITATION Last Admin: 01/06/20 05:23 Dose: 5 mg Documented by: Ondansetron HCl (Zofran) 4 mg PO Q6H PRN PRN Reason: NAUSEA AND VOMITING Last Admin: 01/02/20 03:49 Dose: 4 mg Documented by: Trazodone HCl (Desyrel) 50 mg PO BEDTIME PRN PRN Reason: SLEEP Last Admin: 12/27/19 20:50 Dose: 50 mg Documented by: Ziprasidone (Geodon) 40 mg PO 0800,1700 BART Last Admin: 01/06/20 17:36 Dose: 40 mg Documented by: Ziprasidone (Geodon) 20 mg IM BID PRN PRN Reason: severe agitation Last Admin: 01/03/20 10:12 Dose: 20 mg Documented by: Mental Status Exam MSE Comments: The patient has put on a couple of pounds. She is able to sleep like a log. Mood is calm and affect is appropriate. Thought processes are limited in scope but are linear and free of racing, blocking and looseness of association. One can actually understand her speech now. She is never verbalized threats to against her self or anyone else. Cognitive functions are unfortunately limited. Vitals/I&O/Wt Last Vital Signs Temp 98.7 F 01/06/20 14:00 Pulse 102 H 01/06/20 14:00 Resp 20 H 01/06/20 14:00 BP 102/67 01/06/20 14:00 Pulse Ox 98 01/06/20 14:00 Weight last 48 hrs Weight 103 lb 6.4 oz Involuntary Hold Information 96 Hour Hold: 96 Hour Involuntary Admission: Yes 96 Hour Hold Ending Date: 12/31/19 96 Hour Hold Ending Time: 19:27 21 Day Hold: 21 Day Involuntary Hold: Yes 21 Day Hold Start Date: 01/03/20 21 Day Hold Start Time: 10:09 21 Day Hold End Date: 02/01/20 21 Day Hold End Time: 10:09 Attestations NPU Medical Necessity Statement*: I anticipate 10-12 midnights additional hospitalization Time Spent in Patient Care: 16 - 35 minutes Coding Level of Care Code Acute Instrument Mechanic Weapons System for Flori Carlisle
[2020-01-06 20:48] VITALS: BP 98/53; PULSE 108; RESP 18; TEMP 36.8; O2SAT 98
[2020-01-06] MEDS: trazodone 50 mg Tablet PO (20:57)
[2020-01-06] MEDS: divalproex ER 500 mg Tablet (24H) PO (20:57)
--- NOTE | 2020-01-06 21:46 | PC.NURSE ---
pt was given scheduled Depakote and PRN Trazodone without difficulty this night.
[2020-01-07 06:00] VITALS: BP 95/62; PULSE 102; RESP 18; TEMP 36.7; O2SAT 97
[2020-01-07] MEDS: ziprasidone hcl 40 mg Capsule PO ×2 (08:40→17:10)
--- NOTE | 2020-01-07 15:33 | P.PN_ITS ---
Subjective NPU Subjective: Interval history: Patient states that she has no problems other than every once in a while she gets a little kyle kyle . Medications: Medication Review Details: Current Medications Acetaminophen (Tylenol) 650 mg PO Q4H PRN PRN Reason: MILD PAIN Benztropine Mesylate (Cogentin) 1 mg PO BID PRN PRN Reason: Mild Extrapyramidal symptoms Calcium Carbonate (Tums) 500 mg PO Q4H PRN PRN Reason: INDIGESTION Last Admin: 01/04/20 02:59 Dose: 500 mg Documented by: Diphenhydramine HCl (Benadryl) 50 mg IM ONCE PRN PRN Reason: Severe Extrapyramidal Symptoms Diphenhydramine HCl (Benadryl) 50 mg IM Q4H PRN PRN Reason: Severe Aggression Divalproex Sodium (Depakote Er) 500 mg PO BEDTIME BART Last Admin: 01/05/20 21:25 Dose: Not Given Documented by: Hydroxyzine Pamoate (Vistaril) 50 mg PO Q6H PRN PRN Reason: ANXIETY Last Admin: 12/28/19 17:03 Dose: 50 mg Documented by: Loperamide HCl (Imodium Capsule) 2 mg PO Q6H PRN PRN Reason: DIARRHEA Lorazepam (Ativan) 2 mg IM Q4H PRN PRN Reason: AGITATION Last Admin: 01/06/20 05:23 Dose: 2 mg Documented by: Nicotine (Nicoderm 21 Mg Patch) 1 patch TRANSDERMA DAILY PRN PRN Reason: NICOTINE WITHDRAWAL Last Admin: 01/01/20 17:52 Dose: 1 patch Documented by: Olanzapine (Zyprexa Zydis) 5 mg PO Q4H PRN PRN Reason: Agitation/Psychosis Last Admin: 01/02/20 03:49 Dose: 5 mg Documented by: Olanzapine (Zyprexa) 5 mg IM Q4H PRN PRN Reason: SEVERE AGITATION Last Admin: 01/06/20 05:23 Dose: 5 mg Documented by: Ondansetron HCl (Zofran) 4 mg PO Q6H PRN PRN Reason: NAUSEA AND VOMITING Last Admin: 01/02/20 03:49 Dose: 4 mg Documented by: Trazodone HCl (Desyrel) 50 mg PO BEDTIME PRN PRN Reason: SLEEP Last Admin: 12/27/19 20:50 Dose: 50 mg Documented by: Ziprasidone (Geodon) 40 mg PO 0800,1700 BART Last Admin: 01/06/20 17:36 Dose: 40 mg Documented by: Ziprasidone (Geodon) 20 mg IM BID PRN PRN Reason: severe agitation Last Admin: 01/03/20 10:12 Dose: 20 mg Documented by: Mental Status Exam MSE Comments: Mental Status Exam: Patient is wheeled into the room sitting in a wheelchair. She is cachectic. She has good eye contact. She is crying hysterically from the time she enters the room but gradually improves to where she is able to attempt to carry on a conversation. Appearance: hygiene is fair; no gross neurological deficits., gait is unremarkable; AIMS=0 Speech: Speech is of normal rate and rhythm and easily understood. She is freely conversant and will elaborate on answers. Thought processes: Thought processes are idiosyncratic and illogical.. Judgment is not adequate for safety. Associations: Loose and disorganized Psychotic processes: There is no indication of guarding or paranoia. There is no attention to the internal stimuli. Auditory and visual hallucinations are denied. Judgment: Insight is poor. Problem solving skills are not adequate for safety. Orientation: The patient is oriented to person, place and situation. Memory: Her level of disorganization is such that memory cannot be tested. She confirms that she lives in a house somewhere in [place] but cannot say where she lives. She cannot give any personal history. Attention: The patient is alert and interpersonally engaged. Language: Verbalizations are mumbling and often difficult to understand. Fund of knowledge: Fund of knowledge is quite poor though difficult to test.. Affect/Mood: Affect is tearful with a unstated mood. She denied suicidal ideation Affective range is appropriate. Psychosis: perception is significantly impaired by her disorganized thinking Cognition: Patient Appearance: Disheveled/Poor Hygiene Ability to Follow Directions: Fair Patient Orientation (long list): Person Comprehension Ability: No Impairment Hallucination Type: None Delusion Description: Not Present Thought Process: Confused and Disorganized Affect: Affect Description: Appropriate Behavior: Patient Behavior: Aggressive, Impulsive and Intrusive Speech Pattern: Clear Vitals/I&O/Wt Last Vital Signs Temp 98.0 F 01/07/20 06:00 Pulse 102 H 01/07/20 06:00 Resp 18 01/07/20 06:00 BP 95/62 01/07/20 06:00 Pulse Ox 97 01/07/20 06:00 Weight last 48 hrs Weight 46.901 kg A&P Assessment and plan (1) Bipolar disorder: Pharmacotherapy and millieu. Status: Acute (2) Delirium due to another medical condition, acute, mixed level of activity: The situation is extremely difficult to assess given that this is my first interaction with the patient who is on a 21-day involuntary commitment. She is clearly psychotic to the extent that she is not able to interpret her reality in such a way that she can be aware of possible threats and take appropriate actions to avoid those. Her problem solving skills are impaired in such a way that she is incapable of maintaining safety. However no medication changes will be initiated at this time as no specific changes are indicated. Status: Acute Additional A&P Information (1) Psychosis: (2) Schizophrenia: (3) Methamphetamine dependence: This is a 44-year-old white female who presents with a long history of addiction including methamphetamine dependence/use with juan psychosis with reported history of psychotic disorder vis-?-vis schizophrenia who presents quite disorganized, aggressive and apparently off of her medication. 1. Continue current medication. 2. Encourage individual group and milieu therapy. 3. Continue to 15-minute checks for safety. 4. We will work with social work team for appropriate follow-up. 5. We will need to file for 21-day hold tomorrow because likely only through force medication will be impact her situation psychiatrically. Involuntary Hold Information 96 Hour Hold: 96 Hour Involuntary Admission: Yes 96 Hour Hold Ending Date: 12/31/19 96 Hour Hold Ending Time: 19:27 21 Day Hold: 21 Day Involuntary Hold: Yes 21 Day Hold Start Date: 01/03/20 21 Day Hold Start Time: 10:09 21 Day Hold End Date: 02/01/20 21 Day Hold End Time: 10:09 Attestations NPU Medical Necessity Statement*: Patient will remain in the hospital at least for another 7 to 8 days until we can figure out potential safe resolution. Coding Level of Care Code Acute Analog Design Engineer for Flori Carlisle Diagnoses Bipolar disorder F31.9 Delirium due to another medical condition, acute, mixed level of activity F05
[2020-01-07 19:56] VITALS: BP 98/64; PULSE 99; RESP 18; TEMP 36.9; O2SAT 96
[2020-01-08 06:00] VITALS: BP 115/71; PULSE 83; RESP 17; TEMP 37.3; O2SAT 93
[2020-01-08] MEDS: ziprasidone 20 mg/mL SDV IM (08:36)
--- NOTE | 2020-01-08 08:36 | PC.NURSE ---
PRN GEODON GEODON 20MG IM TO RIGHT DORSOGLUTEAL. INSTRUCTIONS TO GIVE GEODON IM IF PATIENT REFUSES TO TAKE PO. PATIENT CALM AND COOPERATIVE AND WILLING TO TAKE INJECTION.
--- NOTE | 2020-01-08 09:30 | PC.NURSE ---
GARRY KENNEDY FOLLOW UP PATIENT CALM AND COOPERATIVE.
--- NOTE | 2020-01-08 11:36 | PM.NPN ---
Subjective NPU Subjective: Interval history: Patient was is without any significant complaint today.. Medications: Medication Review Details: Current Medications Acetaminophen (Tylenol) 650 mg PO Q4H PRN PRN Reason: MILD PAIN Benztropine Mesylate (Cogentin) 1 mg PO BID PRN PRN Reason: Mild Extrapyramidal symptoms Calcium Carbonate (Tums) 500 mg PO Q4H PRN PRN Reason: INDIGESTION Last Admin: 01/04/20 02:59 Dose: 500 mg Documented by: Diphenhydramine HCl (Benadryl) 50 mg IM ONCE PRN PRN Reason: Severe Extrapyramidal Symptoms Diphenhydramine HCl (Benadryl) 50 mg IM Q4H PRN PRN Reason: Severe Aggression Divalproex Sodium (Depakote Er) 500 mg PO BEDTIME BART Last Admin: 01/05/20 21:25 Dose: Not Given Documented by: Hydroxyzine Pamoate (Vistaril) 50 mg PO Q6H PRN PRN Reason: ANXIETY Last Admin: 12/28/19 17:03 Dose: 50 mg Documented by: Loperamide HCl (Imodium Capsule) 2 mg PO Q6H PRN PRN Reason: DIARRHEA Lorazepam (Ativan) 2 mg IM Q4H PRN PRN Reason: AGITATION Last Admin: 01/06/20 05:23 Dose: 2 mg Documented by: Nicotine (Nicoderm 21 Mg Patch) 1 patch TRANSDERMA DAILY PRN PRN Reason: NICOTINE WITHDRAWAL Last Admin: 01/01/20 17:52 Dose: 1 patch Documented by: Olanzapine (Zyprexa Zydis) 5 mg PO Q4H PRN PRN Reason: Agitation/Psychosis Last Admin: 01/02/20 03:49 Dose: 5 mg Documented by: Olanzapine (Zyprexa) 5 mg IM Q4H PRN PRN Reason: SEVERE AGITATION Last Admin: 01/06/20 05:23 Dose: 5 mg Documented by: Ondansetron HCl (Zofran) 4 mg PO Q6H PRN PRN Reason: NAUSEA AND VOMITING Last Admin: 01/02/20 03:49 Dose: 4 mg Documented by: Trazodone HCl (Desyrel) 50 mg PO BEDTIME PRN PRN Reason: SLEEP Last Admin: 12/27/19 20:50 Dose: 50 mg Documented by: Ziprasidone (Geodon) 40 mg PO 0800,1700 BART Last Admin: 01/06/20 17:36 Dose: 40 mg Documented by: Ziprasidone (Geodon) 20 mg IM BID PRN PRN Reason: severe agitation Last Admin: 01/03/20 10:12 Dose: 20 mg Documented by: Mental Status Exam MSE Comments: Mental Status Exam: Patient is standing next to her wheelchair. She is cachectic. She has good eye contact. She was observed later to be crying rather spontaneously with a rather labile affect. However during the interview, she was able to provide good eye contact and converse. Appearance: hygiene is fair; no gross neurological deficits., gait is unremarkable; AIMS=0 Speech: Speech is of normal rate and rhythm and easily understood. She is freely conversant and will elaborate on answers. However she demonstrates flight of ideas and will eventually switch tract to a completely different topic almost seemingly in mid sentence. Thought processes: Thought processes are idiosyncratic and illogical.. Judgment is not adequate for safety. Associations: Loose and disorganized Psychotic processes: There is no indication of guarding or paranoia. Auditory and visual hallucinations are denied. However she is observed to sitting in her chair by herself and responding to internal stimuli. Judgment: Insight is poor. Problem solving skills are not adequate for safety. Orientation: The patient is oriented to person, place and situation. Memory: Her level of disorganization is such that memory cannot be tested. She confirms that she lives in a house somewhere in [place] but cannot say where she lives. She cannot give any personal history. Attention: The patient is alert and interpersonally engaged. Language: Verbalizations are mumbling and often difficult to understand. Fund of knowledge: Fund of knowledge is quite poor though difficult to test.. Affect/Mood: Affect is euthymic with a unstated mood. She denied suicidal ideation Affective range is labile Psychosis: perception is significantly impaired by her disorganized thinking Cognition: Patient Appearance: Disheveled/Poor Hygiene Ability to Follow Directions: Fair Patient Orientation (long list): Person Comprehension Ability: No Impairment Hallucination Type: None Delusion Description: Not Present Thought Process: Confused and Disorganized Affect: Affect Description: Calm Behavior: Patient Behavior: Appropriate and Cooperative Speech Pattern: Appropriate and Clear Vitals/I&O/Wt Last Vital Signs Temp 99.2 F 01/08/20 06:00 Pulse 83 01/08/20 06:00 Resp 17 01/08/20 06:00 BP 115/71 01/08/20 06:00 Pulse Ox 93 01/08/20 06:00 A&P Assessment and plan (1) Bipolar disorder: Pharmacotherapy and millieu. Status: Acute (2) Delirium due to another medical condition, acute, mixed level of activity: The situation is extremely difficult to assess given that this is my first interaction with the patient who is on a 21-day involuntary commitment. She is clearly psychotic to the extent that she is not able to interpret her reality in such a way that she can be aware of possible threats and take appropriate actions to avoid those. Her problem solving skills are impaired in such a way that she is incapable of maintaining safety. However no medication changes will be initiated at this time as no specific changes are indicated. Hospital day #13: Patient was is without specific complaint. She did refuse her 40 mg of p.o. Geodon this morning and did receive 20 mg of Geodon IM as a result. It is also noted that she woke up at 2:30 in the morning and remained awake the rest of the night. Plan: Add 100 mg of Seroquel at bedtime to supplement episodic refusal of p.o. Geodon and to try and improve diurnal wake and sleep cycle. Status: Acute Additional A&P Information (1) Psychosis: (2) Schizophrenia: (3) Methamphetamine dependence: This is a 44-year-old white female who presents with a long history of addiction including methamphetamine dependence/use with juan psychosis with reported history of psychotic disorder vis-?-vis schizophrenia who presents quite disorganized, aggressive and apparently off of her medication. 1. Continue current medication. 2. Encourage individual group and milieu therapy. 3. Continue to 15-minute checks for safety. 4. We will work with social work team for appropriate follow-up. 5. We will need to file for 21-day hold tomorrow because likely only through force medication will be impact her situation psychiatrically. Involuntary Hold Information 96 Hour Hold: 96 Hour Involuntary Admission: Yes 96 Hour Hold Ending Date: 12/31/19 96 Hour Hold Ending Time: 19:27 21 Day Hold: 21 Day Involuntary Hold: Yes 21 Day Hold Start Date: 01/03/20 21 Day Hold Start Time: 10:09 21 Day Hold End Date: 02/01/20 21 Day Hold End Time: 10:09 Attestations NPU Medical Necessity Statement*: Patient remained in the hospital another 5-7 nights until her psychosis and placement can be resolved. Coding Level of Care Code Acute Promotional Marketing Agent for Flori Carlisle Diagnoses Bipolar disorder F31.9 Delirium due to another medical condition, acute, mixed level of activity F05
[2020-01-08 13:36] VITALS: BP 93/61; PULSE 114; RESP 18; TEMP 36.9; O2SAT 99
[2020-01-08] MEDS: ziprasidone hcl 40 mg Capsule PO (17:07)
[2020-01-08 20:38] VITALS: BP 104/66; PULSE 115; RESP 20; TEMP 36.9; O2SAT 97
[2020-01-08] MEDS: quetiapine 100 mg Tablet PO (21:40)
--- NOTE | 2020-01-08 22:27 | PC.NURSE ---
DEPAKOTE PT REFUSED 2099 SCHEDULED DEPAKOTE.
[2020-01-09] MEDS: OLANZapine 10 mg VIAL 5 MG IM (05:54)
--- NOTE | 2020-01-09 05:57 | PC.NURSE ---
ZYPREXA PT IN ROOM YELLING AND TRYING TO HIT STAFF. AFTER SEVERAL ATTEMPTS TO VERBALLY REDIRECT PATIENT, ADMINISTERED ZYPREXA 5 MG IM. PT TOLERATED WELL. 5MG WASTED AND WITNESSED BY TANO ORTEGA RN. WILL MONITOR FOR MEDICATION EFFECTIVENESS.
[2020-01-09 06:00] VITALS: BP 139/81; PULSE 102; RESP 19; TEMP 36.6; O2SAT 95
--- NOTE | 2020-01-09 07:28 | PC.NURSE ---
Both staff went to patients room to assist with toileting. Patient then started to get agitated, patient lifted leg into the air in attempt to kick staff.
[2020-01-09] MEDS: ziprasidone hcl 40 mg Capsule PO (08:46)
--- NOTE | 2020-01-09 09:07 | PM.NPN ---
Subjective NPU Subjective: Interval history: Patient was is without any significant complaint today.. Medications: Medication Review Details: Current Medications Acetaminophen (Tylenol) 650 mg PO Q4H PRN PRN Reason: MILD PAIN Benztropine Mesylate (Cogentin) 1 mg PO BID PRN PRN Reason: Mild Extrapyramidal symptoms Calcium Carbonate (Tums) 500 mg PO Q4H PRN PRN Reason: INDIGESTION Last Admin: 01/04/20 02:59 Dose: 500 mg Documented by: Diphenhydramine HCl (Benadryl) 50 mg IM ONCE PRN PRN Reason: Severe Extrapyramidal Symptoms Diphenhydramine HCl (Benadryl) 50 mg IM Q4H PRN PRN Reason: Severe Aggression Divalproex Sodium (Depakote Er) 500 mg PO BEDTIME BART Last Admin: 01/05/20 21:25 Dose: Not Given Documented by: Hydroxyzine Pamoate (Vistaril) 50 mg PO Q6H PRN PRN Reason: ANXIETY Last Admin: 12/28/19 17:03 Dose: 50 mg Documented by: Loperamide HCl (Imodium Capsule) 2 mg PO Q6H PRN PRN Reason: DIARRHEA Lorazepam (Ativan) 2 mg IM Q4H PRN PRN Reason: AGITATION Last Admin: 01/06/20 05:23 Dose: 2 mg Documented by: Nicotine (Nicoderm 21 Mg Patch) 1 patch TRANSDERMA DAILY PRN PRN Reason: NICOTINE WITHDRAWAL Last Admin: 01/01/20 17:52 Dose: 1 patch Documented by: Olanzapine (Zyprexa Zydis) 5 mg PO Q4H PRN PRN Reason: Agitation/Psychosis Last Admin: 01/02/20 03:49 Dose: 5 mg Documented by: Olanzapine (Zyprexa) 5 mg IM Q4H PRN PRN Reason: SEVERE AGITATION Last Admin: 01/06/20 05:23 Dose: 5 mg Documented by: Ondansetron HCl (Zofran) 4 mg PO Q6H PRN PRN Reason: NAUSEA AND VOMITING Last Admin: 01/02/20 03:49 Dose: 4 mg Documented by: Trazodone HCl (Desyrel) 50 mg PO BEDTIME PRN PRN Reason: SLEEP Last Admin: 12/27/19 20:50 Dose: 50 mg Documented by: Ziprasidone (Geodon) 40 mg PO 0800,1700 BART Last Admin: 01/06/20 17:36 Dose: 40 mg Documented by: Ziprasidone (Geodon) 20 mg IM BID PRN PRN Reason: severe agitation Last Admin: 01/03/20 10:12 Dose: 20 mg Documented by: Mental Status Exam MSE Comments: Mental Status Exam: Patient is laying in her bed in her room jabbering incessantly. She is cachectic. She has good eye contact. Appearance: hygiene is fair; no gross neurological deficits., gait is unremarkable; AIMS=0 Speech: Speech is of normal rate and rhythm and easily understood. She is freely conversant and will elaborate on answers. However she demonstrates flight of ideas and will eventually switch tract to a completely different topic almost seemingly in mid sentence. Thought processes: Thought processes are idiosyncratic and illogical.. Judgment is not adequate for safety. Associations: Loose and disorganized Psychotic processes: There is no indication of guarding or paranoia. Auditory and visual hallucinations are denied. However she is observed to sitting in her chair by herself and responding to internal stimuli. Judgment: Insight is poor. Problem solving skills are not adequate for safety. Orientation: The patient is oriented to person, place and situation. Memory: Her level of disorganization is such that memory cannot be tested. She confirms that she lives in a house somewhere in [place] but cannot say where she lives. She cannot give any personal history. Attention: The patient is alert and interpersonally engaged. Language: Verbalizations are mumbling and often difficult to understand. Fund of knowledge: Fund of knowledge is quite poor though difficult to test.. Affect/Mood: Affect is euthymic with a unstated mood. She denied suicidal ideation Affective range is labile Psychosis: perception is significantly impaired by her disorganized thinking Cognition: Patient Appearance: Disheveled/Poor Hygiene Ability to Follow Directions: Fair Patient Orientation (long list): Person Comprehension Ability: No Impairment Hallucination Type: None Delusion Description: Persecutory Thought Process: Confused, Disorganized, Flight of Ideas, Incoherent and Loose Associations Affect: Affect Description: Anxious and Guarded Behavior: Patient Behavior: Aggressive, Hostile, Irritable and Negative Speech Pattern: Pressured and Rambling Vitals/I&O/Wt Last Vital Signs Temp 97.8 F 01/09/20 06:00 Pulse 102 H 01/09/20 06:00 Resp 19 H 01/09/20 06:00 BP 139/81 01/09/20 06:00 Pulse Ox 95 01/09/20 06:00 A&P Assessment and plan (1) Bipolar disorder: Pharmacotherapy and millieu. Status: Acute (2) Delirium due to another medical condition, acute, mixed level of activity: Hospital day #14: Plan: Add 100 mg of Seroquel at bedtime to supplement episodic refusal of p.o. Geodon and to try and improve diurnal wake and sleep cycle. Hospital day #15: Patient continues to exhibit persistent signs of heriberto and psychosis. Last night she did not sleep at all if and after reduction of Seroquel 100 mg at bedtime. It is also noted that she is only taking 500 mg of Depakote with a diagnosis of bipolar heriberto. Plan: Increase Seroquel to 200 mg at bedtime. Increase Depakote to 500 mg twice daily and will continue to push as tolerated until we can release tablets and effective diurnal cycle. Geodon was increased to 60 mg twice daily. She continues to be episodically noncompliant without medication. Status: Acute Additional A&P Information (1) Psychosis: (2) Schizophrenia: (3) Methamphetamine dependence: Involuntary Hold Information 96 Hour Hold: 96 Hour Involuntary Admission: Yes 96 Hour Hold Ending Date: 12/31/19 96 Hour Hold Ending Time: 19:27 21 Day Hold: 21 Day Involuntary Hold: Yes 21 Day Hold Start Date: 01/03/20 21 Day Hold Start Time: 10:09 21 Day Hold End Date: 02/01/20 21 Day Hold End Time: 10:09 Attestations NPU Medical Necessity Statement*: Patient will remain in the hospital another 5-7 nights until we can get her bipolar heriberto under control. Coding Level of Care Code Acute [employer] Scientific Aid for Flori Carlisle Diagnoses Bipolar disorder F31.9 Delirium due to another medical condition, acute, mixed level of activity F05
[2020-01-09] MEDS: divalproex ER 500 mg Tablet (24H) PO ×2 (10:03→17:39)
[2020-01-09 14:00] VITALS: BP 91/56; PULSE 125; RESP 18; TEMP 36.9; O2SAT 96
[2020-01-09] MEDS: ziprasidone hcl 60 mg Capsule PO (17:39)
[2020-01-09] MEDS: quetiapine 100 mg Tablet 200 MG PO (21:26)
[2020-01-09 22:00] VITALS: BP 101/62; PULSE 107; RESP 24; TEMP 36.8; O2SAT 96
[2020-01-10 06:00] VITALS: BP 126/79; PULSE 101; RESP 19; TEMP 36.5; O2SAT 97
--- NOTE | 2020-01-10 07:55 | P.PN_ITS ---
Subjective NPU Subjective: Interval history: Patient expressed rambling complaints about her history of her closed head injury and how she wants her breakfast in a certain way. She had no specific complaints about medications. She denied suicidal ideation. Medications: Medication Review Details: Current Medications Acetaminophen (Tylenol) 650 mg PO Q4H PRN PRN Reason: MILD PAIN Benztropine Mesylate (Cogentin) 1 mg PO BID PRN PRN Reason: Mild Extrapyramidal symptoms Calcium Carbonate (Tums) 500 mg PO Q4H PRN PRN Reason: INDIGESTION Last Admin: 01/04/20 02:59 Dose: 500 mg Documented by: Diphenhydramine HCl (Benadryl) 50 mg IM ONCE PRN PRN Reason: Severe Extrapyramidal Symptoms Diphenhydramine HCl (Benadryl) 50 mg IM Q4H PRN PRN Reason: Severe Aggression Divalproex Sodium (Depakote Er) 500 mg PO BEDTIME BART Last Admin: 01/05/20 21:25 Dose: Not Given Documented by: Hydroxyzine Pamoate (Vistaril) 50 mg PO Q6H PRN PRN Reason: ANXIETY Last Admin: 12/28/19 17:03 Dose: 50 mg Documented by: Loperamide HCl (Imodium Capsule) 2 mg PO Q6H PRN PRN Reason: DIARRHEA Lorazepam (Ativan) 2 mg IM Q4H PRN PRN Reason: AGITATION Last Admin: 01/06/20 05:23 Dose: 2 mg Documented by: Nicotine (Nicoderm 21 Mg Patch) 1 patch TRANSDERMA DAILY PRN PRN Reason: NICOTINE WITHDRAWAL Last Admin: 01/01/20 17:52 Dose: 1 patch Documented by: Olanzapine (Zyprexa Zydis) 5 mg PO Q4H PRN PRN Reason: Agitation/Psychosis Last Admin: 01/02/20 03:49 Dose: 5 mg Documented by: Olanzapine (Zyprexa) 5 mg IM Q4H PRN PRN Reason: SEVERE AGITATION Last Admin: 01/06/20 05:23 Dose: 5 mg Documented by: Ondansetron HCl (Zofran) 4 mg PO Q6H PRN PRN Reason: NAUSEA AND VOMITING Last Admin: 01/02/20 03:49 Dose: 4 mg Documented by: Trazodone HCl (Desyrel) 50 mg PO BEDTIME PRN PRN Reason: SLEEP Last Admin: 12/27/19 20:50 Dose: 50 mg Documented by: Ziprasidone (Geodon) 40 mg PO 0800,1700 BART Last Admin: 01/06/20 17:36 Dose: 40 mg Documented by: Ziprasidone (Geodon) 20 mg IM BID PRN PRN Reason: severe agitation Last Admin: 01/03/20 10:12 Dose: 20 mg Documented by: Mental Status Exam MSE Comments: Mental Status Exam: Patient is sitting in the common area in her wheelchair. She is alert and interpersonally engaged. Her hygiene is improved. She has good eye contact. Appearance: hygiene is fair; no gross neurological deficits., gait is unremarkable; AIMS=0 Speech: Speech is of normal rate and rhythm and easily understood. She is freely conversant and will elaborate on answers. Her degree of goal-directed this is much improved. She is no longer displaying flight of ideas though she continues to be quite illogical and difficult to follow. She does talk incess antly and does not really engage in conversation. Thought processes: Thought processes are idiosyncratic and illogical.. Judgment is not adequate for safety. Associations: Loose and disorganized Psychotic processes: There is no indication of guarding or paranoia. Auditory and visual hallucinations are denied. However she is observed to sitting in her chair by herself and responding to internal stimuli. Judgment: Insight is poor. Problem solving skills are not adequate for safety. Orientation: The patient is oriented to person, place and situation. Memory: Her level of disorganization is such that memory cannot be tested. She confirms that she lives in a house somewhere in [place] but cannot say where she lives. She cannot give any personal history. Attention: The patient is alert and interpersonally engaged. Language: Verbalizations are mumbling and often difficult to understand. Fund of knowledge: Fund of knowledge is quite poor though difficult to test.. Affect/Mood: Affect is euthymic with a manic mood. She denied suicidal ideation Affective range is labile Psychosis: perception is significantly impaired by her disorganized thinking Cognition: Patient Appearance: Disheveled/Poor Hygiene Ability to Follow Directions: Fair Patient Orientation (long list): Person Comprehension Ability: No Impairment Hallucination Type: None Delusion Description: Persecutory Thought Process: Confused, Disorganized, Flight of Ideas, Incoherent and Loose Associations Affect: Affect Description: Calm Behavior: Patient Behavior: Appropriate Speech Pattern: Clear Vitals/I&O/Wt Last Vital Signs Temp 97.7 F 01/10/20 06:00 Pulse 101 H 01/10/20 06:00 Resp 19 H 01/10/20 06:00 BP 126/79 01/10/20 06:00 Pulse Ox 97 01/10/20 06:00 A&P Assessment and plan (1) Bipolar disorder: Pharmacotherapy and millieu. Status: Acute (2) Delirium due to another medical condition, acute, mixed level of activity: Hospital day #14: Plan: Add 100 mg of Seroquel at bedtime to supplement episodic refusal of p.o. Geodon and to try and improve diurnal wake and sleep cycle. Hospital day #15: Patient continues to exhibit persistent signs of heriberto and psychosis. Last night she did not sleep at all if and after reduction of Seroquel 100 mg at bedtime. It is also noted that she is only taking 500 mg of Depakote with a diagnosis of bipolar heriberto. Plan: Increase Seroquel to 200 mg at bedtime. Increase Depakote to 500 mg twice daily and will continue to push as tolerated until we can release tablets and effective diurnal cycle. Geodon was increased to 60 mg twice daily. She continues to be episodically noncompliant without medication. Hospital day #16: Patient is displaying improved focus of attention and ability to give verbal discourse without flight of ideas. She still is having difficulty actually engaging in a conversation. She continues to be somewhat illogical. After changes in medication yesterday, she did sleep for 6 hours last night. Plan: Add clonazepam 2 mg at bedtime for 2 nights to try and improve her length of sleep. However with her trending toward resolution of heriberto, this is likely only needed temporarily. We will also get valproic acid level in 2 days. Status: Acute Additional A&P Information (1) Psychosis: (2) Schizophrenia: (3) Methamphetamine dependence: Involuntary Hold Information 96 Hour Hold: 96 Hour Involuntary Admission: Yes 96 Hour Hold Ending Date: 12/31/19 96 Hour Hold Ending Time: 19:27 21 Day Hold: 21 Day Involuntary Hold: Yes 21 Day Hold Start Date: 01/03/20 21 Day Hold Start Time: 10:09 21 Day Hold End Date: 02/01/20 21 Day Hold End Time: 10:09 Attestations NPU Medical Necessity Statement*: Patient will remain in the hospital another 4-6 nights while her heriberto resolves. Coding Level of Care Code Acute Maintenance Shop Laborer for Flori Carlisle Diagnoses Bipolar disorder F31.9 Delirium due to another medical condition, acute, mixed level of activity F05
[2020-01-10] MEDS: ziprasidone hcl 60 mg Capsule PO ×2 (08:37→16:46)
--- NOTE | 2020-01-10 08:44 | PC.NURSE ---
PT REFUSED SCHEDULED DEPAKOTE THIS AM. PHYSICIAN AWARE
[2020-01-10] MEDS: LORazepam 2 mg/mL INJ 1 mL IM (09:02)
--- NOTE | 2020-01-10 09:03 | PC.NURSE ---
Addendum entered by Shaila Lozada LPN 01/10/20 12:56: prn med effective no further c/o of anxiety or agitation Original Note: PRN ATIVAN 2 MG GIVEN IM PER PT C/O SEVERE ANXIETY/AGITATION. PT TOOK INJECTION IN RIGHT DELTOID. TOOK MED WITHOUT INCIDENT. PT TEARFUL, RAPID PRESSURED SPEECH NOTED. WILL CONT TO MONITOR.
[2020-01-10 13:37] VITALS: BP 91/59; PULSE 105; RESP 17; O2SAT 99
--- NOTE | 2020-01-10 13:38 | PC.NURSE ---
refused to let staff obtain temp
[2020-01-10] MEDS: divalproex ER 500 mg Tablet (24H) PO (16:46)
[2020-01-10] MEDS: quetiapine 100 mg Tablet 200 MG PO (21:22)
[2020-01-10] MEDS: CLONazepam 1 mg Tablet 2 MG PO (21:22)
[2020-01-10 21:40] VITALS: BP 102/74; PULSE 119; RESP 20; TEMP 37.1; O2SAT 97
[2020-01-11 06:00] VITALS: PULSE 86; RESP 23; O2SAT 96
[2020-01-11] MEDS: divalproex ER 500 mg Tablet (24H) PO ×2 (07:46→17:06)
[2020-01-11] MEDS: ziprasidone hcl 60 mg Capsule PO ×2 (07:46→17:06)
--- NOTE | 2020-01-11 11:09 | PM.NPN ---
Subjective NPU Subjective: Interval history: Patient without demands today other than going home . She had no specific complaints about medications. She denied suicidal ideation. Medications: Medication Review Details: Current Medications Acetaminophen (Tylenol) 650 mg PO Q4H PRN PRN Reason: MILD PAIN Benztropine Mesylate (Cogentin) 1 mg PO BID PRN PRN Reason: Mild Extrapyramidal symptoms Calcium Carbonate (Tums) 500 mg PO Q4H PRN PRN Reason: INDIGESTION Last Admin: 01/04/20 02:59 Dose: 500 mg Documented by: Diphenhydramine HCl (Benadryl) 50 mg IM ONCE PRN PRN Reason: Severe Extrapyramidal Symptoms Diphenhydramine HCl (Benadryl) 50 mg IM Q4H PRN PRN Reason: Severe Aggression Divalproex Sodium (Depakote Er) 500 mg PO BEDTIME BART Last Admin: 01/05/20 21:25 Dose: Not Given Documented by: Hydroxyzine Pamoate (Vistaril) 50 mg PO Q6H PRN PRN Reason: ANXIETY Last Admin: 12/28/19 17:03 Dose: 50 mg Documented by: Loperamide HCl (Imodium Capsule) 2 mg PO Q6H PRN PRN Reason: DIARRHEA Lorazepam (Ativan) 2 mg IM Q4H PRN PRN Reason: AGITATION Last Admin: 01/06/20 05:23 Dose: 2 mg Documented by: Nicotine (Nicoderm 21 Mg Patch) 1 patch TRANSDERMA DAILY PRN PRN Reason: NICOTINE WITHDRAWAL Last Admin: 01/01/20 17:52 Dose: 1 patch Documented by: Olanzapine (Zyprexa Zydis) 5 mg PO Q4H PRN PRN Reason: Agitation/Psychosis Last Admin: 01/02/20 03:49 Dose: 5 mg Documented by: Olanzapine (Zyprexa) 5 mg IM Q4H PRN PRN Reason: SEVERE AGITATION Last Admin: 01/06/20 05:23 Dose: 5 mg Documented by: Ondansetron HCl (Zofran) 4 mg PO Q6H PRN PRN Reason: NAUSEA AND VOMITING Last Admin: 01/02/20 03:49 Dose: 4 mg Documented by: Trazodone HCl (Desyrel) 50 mg PO BEDTIME PRN PRN Reason: SLEEP Last Admin: 12/27/19 20:50 Dose: 50 mg Documented by: Ziprasidone (Geodon) 40 mg PO 0800,1700 BART Last Admin: 01/06/20 17:36 Dose: 40 mg Documented by: Ziprasidone (Geodon) 20 mg IM BID PRN PRN Reason: severe agitation Last Admin: 01/03/20 10:12 Dose: 20 mg Documented by: Mental Status Exam MSE Comments: Mental Status Exam: Patient is sitting in the common area in her wheelchair. She is alert and interpersonally engaged. Her hygiene is improved. She has good eye contact. Appearance: hygiene is fair; no gross neurological deficits., gait is unremarkable; AIMS=0 Speech: Speech is of normal rate and rhythm and easily understood. She is freely conversant and will elaborate on answers. Her degree of goal-directed this is much improved. She is no longer displaying flight of ideas though she continues to be quite illogical and difficult to follow. She does talk incessantly and does not really engage in conversation. Thought processes: Thought processes are concrete and illogical.. Judgment is not adequate for safety. Associations: Loose and disorganized Psychotic processes: There is no indication of guarding or paranoia. Auditory and visual hallucinations are denied. However she is observed to sitting in her chair by herself and responding to internal stimuli. Judgment: Insight is poor. Problem solving skills are not adequate for safety. Orientation: The patient is oriented to person, place and situation. Memory: Memory is mproved. She is displaying good short term and distant memory. Attention: The patient is alert and interpersonally engaged. Language: Verbalizations are generaly understood now Fund of knowledge: Fund of knowledge is quite poor. Affect/Mood: Affect is euthymic with a manic mood. She denied suicidal ideation Affective range is labile Psychosis: perception is improving as here thinking is becoming much more linear. Cognition: Patient Appearance: Appropriate Ability to Follow Directions: Fair Patient Orientation (long list): Person Comprehension Ability: No Impairment Hallucination Type: None Delusion Description: Not Present Thought Process: Appropriate Affect: Affect Description: Appropriate Behavior: Patient Behavior: Cooperative Speech Pattern: Appropriate and Clear Vitals/I&O/Wt Last Vital Signs Temp 98.8 F 01/10/20 21:40 Pulse 86 01/11/20 06:00 Resp 23 H 01/11/20 06:00 BP 102/74 01/10/20 21:40 Pulse Ox 96 01/11/20 06:00 A&P Assessment and plan (1) Bipolar disorder: Pharmacotherapy and millieu. Status: Acute (2) Delirium due to another medical condition, acute, mixed level of activity: Hospital day #14: Plan: Add 100 mg of Seroquel at bedtime to supplement episodic refusal of p.o. Geodon and to try and improve diurnal wake and sleep cycle. Hospital day #15: Patient continues to exhibit persistent signs of heriberto and psychosis. Last night she did not sleep at all if and after reduction of Seroquel 100 mg at bedtime. It is also noted that she is only taking 500 mg of Depakote with a diagnosis of bipolar heriberto. Plan: Increase Seroquel to 200 mg at bedtime. Increase Depakote to 500 mg twice daily and will continue to push as tolerated until we can release tablets and effective diurnal cycle. Geodon was increased to 60 mg twice daily. She continues to be episodically noncompliant without medication. Hospital day #16: Patient is displaying improved focus of attention and ability to give verbal discourse without flight of ideas. She still is having difficulty actually engaging in a conversation. She continues to be somewhat illogical. After changes in medication yesterday, she did sleep for 6 hours last night. Plan: Add clonazepam 2 mg at bedtime for 2 nights to try and improve her length of sleep. However with her trending toward resolution of heriberto, this is likely only needed temporarily. We will also get valproic acid level in 2 days. Hospital day #17: Patient continues to remain under involuntary commitment until 03 January 2020. However she has shown significant improvement. Her sleep is much improved though it is kind of concerning that she falls asleep right after supper. However positive response to current medications necessitates no changes at this time. She has a Depakote level pending tomorrow. She has missed 1 dose so far. Status: Acute Additional A&P Information (1) Psychosis: (2) Schizophrenia: (3) Methamphetamine dependence: Involuntary Hold Information 96 Hour Hold: 96 Hour Involuntary Admission: Yes 96 Hour Hold Ending Date: 12/31/19 96 Hour Hold Ending Time: 19:27 21 Day Hold: 21 Day Involuntary Hold: Yes 21 Day Hold Start Date: 01/03/20 21 Day Hold Start Time: 10:09 21 Day Hold End Date: 02/01/20 21 Day Hold End Time: 10:09 Attestations NPU Medical Necessity Statement*: She will remain in the hospital another 4 to 7 days hopefully to be placed and improvement in her mental health status. Coding Level of Care Code Acute Handmade Tile Artist for Flori Carlisle Diagnoses Bipolar disorder F31.9 Delirium due to another medical condition, acute, mixed level of activity F05
[2020-01-11 14:00] VITALS: BP 116/61; PULSE 105; RESP 20; TEMP 36.8; O2SAT 97
[2020-01-11] MEDS: quetiapine 100 mg Tablet 200 MG PO (20:57)
[2020-01-11] MEDS: CLONazepam 1 mg Tablet 2 MG PO (20:57)
[2020-01-11 21:31] VITALS: BP 99/59; PULSE 104; RESP 21; TEMP 36.5; O2SAT 99
[2020-01-12 06:00] VITALS: RESP 18
--- NOTE | 2020-01-12 08:21 | PM.NPN ---
Subjective NPU Subjective: Interval history: Patient is making somewhat illogical requests today but her requests are appropriately done. She does not want Dr. Springer to discharge her. She wants me to discharge her. However she does not have a place to go today. She says she wants to go stay at some man's house. She cannot state his name. But then she says she will always have a place to stay as long as her mother is alive. This is not confirmed. She denies being fatigued or sedated today. Medications: Medication Review Details: Current Medications Acetaminophen (Tylenol) 650 mg PO Q4H PRN PRN Reason: MILD PAIN Benztropine Mesylate (Cogentin) 1 mg PO BID PRN PRN Reason: Mild Extrapyramidal symptoms Calcium Carbonate (Tums) 500 mg PO Q4H PRN PRN Reason: INDIGESTION Last Admin: 01/04/20 02:59 Dose: 500 mg Documented by: Diphenhydramine HCl (Benadryl) 50 mg IM ONCE PRN PRN Reason: Severe Extrapyramidal Symptoms Diphenhydramine HCl (Benadryl) 50 mg IM Q4H PRN PRN Reason: Severe Aggression Divalproex Sodium (Depakote Er) 500 mg PO BEDTIME BART Last Admin: 01/05/20 21:25 Dose: Not Given Documented by: Hydroxyzine Pamoate (Vistaril) 50 mg PO Q6H PRN PRN Reason: ANXIETY Last Admin: 12/28/19 17:03 Dose: 50 mg Documented by: Loperamide HCl (Imodium Capsule) 2 mg PO Q6H PRN PRN Reason: DIARRHEA Lorazepam (Ativan) 2 mg IM Q4H PRN PRN Reason: AGITATION Last Admin: 01/06/20 05:23 Dose: 2 mg Documented by: Nicotine (Nicoderm 21 Mg Patch) 1 patch TRANSDERMA DAILY PRN PRN Reason: NICOTINE WITHDRAWAL Last Admin: 01/01/20 17:52 Dose: 1 patch Documented by: Olanzapine (Zyprexa Zydis) 5 mg PO Q4H PRN PRN Reason: Agitation/Psychosis Last Admin: 01/02/20 03:49 Dose: 5 mg Documented by: Olanzapine (Zyprexa) 5 mg IM Q4H PRN PRN Reason: SEVERE AGITATION Last Admin: 01/06/20 05:23 Dose: 5 mg Documented by: Ondansetron HCl (Zofran) 4 mg PO Q6H PRN PRN Reason: NAUSEA AND VOMITING Last Admin: 01/02/20 03:49 Dose: 4 mg Documented by: Trazodone HCl (Desyrel) 50 mg PO BEDTIME PRN PRN Reason: SLEEP Last Admin: 12/27/19 20:50 Dose: 50 mg Documented by: Ziprasidone (Geodon) 40 mg PO 0800,1700 BART Last Admin: 01/06/20 17:36 Dose: 40 mg Documented by: Ziprasidone (Geodon) 20 mg IM BID PRN PRN Reason: severe agitation Last Admin: 01/03/20 10:12 Dose: 20 mg Documented by: Mental Status Exam MSE Comments: Record review indicates that she is sleeping through the night. She may be sleeping excessively. But she does not complain of fatigue today. Mental Status Exam: Patient is sitting in the common area in her wheelchair. She is alert and interpersonally engaged. Her hygiene is improved. She has good eye contact. Appearance: hygiene is good; no gross neurological deficits.; AIMS=0 Speech: Speech is of normal rate and rhythm and easily understood. She is freely conversant and will elaborate on answers. She continues to be mildly pressured to the extent that it is difficult for her to stop her from talking. Her degree of goal-directed this is much improved. She is no longer displaying flight of ideas though she continues to be quite illogical and difficult to follow. She does talk incessantly and does not really engage in conversation. Thought processes: Thought processes are concrete and illogical.. Judgment is not adequate for safety without supervision. Associations: Loose and disorganized Psychotic processes: There is no indication of guarding or paranoia. Auditory and visual hallucinations are denied. However she is observed to sitting in her chair by herself and responding to internal stimuli. Judgment: Insight is poor. Problem solving skills are not adequate for safety. Orientation: The patient is oriented to person, place and situation. Memory: Memory is mproved. She is displaying good short term and distant memory. Attention: The patient is alert and interpersonally engaged. Language: Verbalizations are generaly understood now Fund of knowledge: Fund of knowledge is quite poor. Affect/Mood: Affect is euthymic with a hypo-manic mood. She denied suicidal ideation Affective range is labile Psychosis: perception is improving as here thinking is becoming much more linear. Cognition: Patient Appearance: Disheveled/Poor Hygiene Ability to Follow Directions: Fair Patient Orientation (long list): Person Comprehension Ability: No Impairment Hallucination Type: None Delusion Description: Not Present Thought Process: Circumstantial and Disorganized Affect: Affect Description: Appropriate Behavior: Patient Behavior: Appropriate Speech Pattern: Appropriate, Inappropriate and Includes Profanity Vitals/I&O/Wt Last Vital Signs Temp 97.7 F 01/11/20 21:31 Pulse 104 H 01/11/20 21:31 Resp 18 01/12/20 06:00 BP 99/59 01/11/20 21:31 Pulse Ox 99 01/11/20 21:31 A&P Assessment and plan (1) Bipolar disorder: Pharmacotherapy and millieu. Status: Acute (2) Delirium due to another medical condition, acute, mixed level of activity: Hospital day #14: Plan: Add 100 mg of Seroquel at bedtime to supplement episodic refusal of p.o. Geodon and to try and improve diurnal wake and sleep cycle. Hospital day #15: Patient continues to exhibit persistent signs of heriberto and psychosis. Last night she did not sleep at all if and after reduction of Seroquel 100 mg at bedtime. It is also noted that she is only taking 500 mg of Depakote with a diagnosis of bipolar heriberto. Plan: Increase Seroquel to 200 mg at bedtime. Increase Depakote to 500 mg twice daily and will continue to push as tolerated until we can release tablets and effective diurnal cycle. Geodon was increased to 60 mg twice daily. She continues to be episodically noncompliant without medication. Hospital day #16: Patient is displaying improved focus of attention and ability to give verbal discourse without flight of ideas. She still is having difficulty actually engaging in a conversation. She continues to be somewhat illogical. After changes in medication yesterday, she did sleep for 6 hours last night. Plan: Add clonazepam 2 mg at bedtime for 2 nights to try and improve her length of sleep. However with her trending toward resolution of heriberto, this is likely only needed temporarily. We will also get valproic acid level in 2 days. Hospital day #17: Patient continues to remain under involuntary commitment . However she has shown significant improvement. Her sleep is much improved though it is kind of concerning that she falls asleep right after supper. However positive response to current medications necessitates no changes at this time. She has a Depakote level pending tomorrow. She has missed 1 dose so far. Hospital day #18: The patient is much improved on Geodon 60 mg twice daily and Seroquel 200 mg at bedtime. She may be sleeping excessively though she does not complain of fatigue or tiredness. She continues to have mildly pressured speech but at least there is some logic to it. Her memory has improved and she is able to engage in topics today that were discussed yesterday. Placement continues to be an issue. Plan: No medication changes at this time. We will consider decrease of Seroquel if fatigue becomes a problem. She is now being compliant with medication. Valproic acid level was drawn this morning and we are awaiting its results. Status: Acute Additional A&P Information (1) Psychosis: (2) Schizophrenia: (3) Methamphetamine dependence: Involuntary Hold Information 96 Hour Hold: 96 Hour Involuntary Admission: Yes 96 Hour Hold Ending Date: 12/31/19 96 Hour Hold Ending Time: 19:27 21 Day Hold: 21 Day Involuntary Hold: Yes 21 Day Hold Start Date: 01/03/20 21 Day Hold Start Time: 10:09 21 Day Hold End Date: 02/01/20 21 Day Hold End Time: 10:09 Attestations NPU Medical Necessity Statement*: Patient will remain in the hospital another 2-4 nights for assessment of medication efficacy and tolerability. Coding Level of Care Code Acute Mobility Architect Manager for Flori Carlisle Diagnoses Bipolar disorder F31.9 Delirium due to another medical condition, acute, mixed level of activity F05
[2020-01-12] MEDS: divalproex ER 500 mg Tablet (24H) PO ×2 (08:23→17:02)
[2020-01-12] MEDS: ziprasidone hcl 60 mg Capsule PO ×2 (08:23→17:03)
[2020-01-12 08:51] LABS: Valproic Acid Level 49.5 ug/mL (50-100)
[2020-01-12 14:00] VITALS: BP 107/67; RESP 17; TEMP 36.6; O2SAT 99
[2020-01-12 22:00] VITALS: BP 107/67; PULSE 63; RESP 22; TEMP 36.7; O2SAT 99
[2020-01-12] MEDS: quetiapine 100 mg Tablet 200 MG PO (22:45)
[2020-01-12] MEDS: OLANZapine 5 mg ODT PO (22:45)
--- NOTE | 2020-01-12 23:09 | PC.NURSE ---
5mg Zyprexa zydis given for given for agitation.
[2020-01-13 06:00] VITALS: BP 104/60; PULSE 100; RESP 23; TEMP 36.6; O2SAT 98
--- NOTE | 2020-01-13 08:17 | PC.NURSE ---
Addendum entered by Shaila Lozada LPN 01/13/20 09:25: AFTER MUCH STAFF ENCOURAGEMENT, PT TOOK SCHEDULED DEPAKOTE & GEODON. PHYSICIAN NOTIFIED Original Note: refused scheduled Geodon & Depakote this morning. pt very argumentative, cursing at staff, hard to redirect
--- NOTE | 2020-01-13 08:25 | PM.NPN ---
Subjective NPU Subjective: Interval history: The patient continues to speak in a pressured manner but appears at times to be logical in her requests. At other times she seems to ramble incoherently. She is slightly paranoid, indicating that her ex- is bothering her, all of which we have no evidence. She is improved from the last time I saw her and her valproate level is now almost in the therapeutic range at 49.5 mcg/mL. She seems to be less disheveled and well kept. She refused her medicine this morning and this is a common occurrence, according to the staff. I suspect she be in therapeutic range if she were fully compliant. Medications: Reviewed: Yes Medication Review Details: Current Medications Acetaminophen (Tylenol) 650 mg PO Q4H PRN PRN Reason: MILD PAIN Benztropine Mesylate (Cogentin) 1 mg PO BID PRN PRN Reason: Mild Extrapyramidal symptoms Calcium Carbonate (Tums) 500 mg PO Q4H PRN PRN Reason: INDIGESTION Last Admin: 01/04/20 02:59 Dose: 500 mg Documented by: Diphenhydramine HCl (Benadryl) 50 mg IM ONCE PRN PRN Reason: Severe Extrapyramidal Symptoms Diphenhydramine HCl (Benadryl) 50 mg IM Q4H PRN PRN Reason: Severe Aggression Divalproex Sodium (Depakote Er) 500 mg PO BID [facility] Last Admin: 01/13/20 08:16 Dose: Not Given Documented by: Hydroxyzine Pamoate (Vistaril) 50 mg PO Q6H PRN PRN Reason: ANXIETY Last Admin: 12/28/19 17:03 Dose: 50 mg Documented by: Loperamide HCl (Imodium Capsule) 2 mg PO Q6H PRN PRN Reason: DIARRHEA Nicotine (Nicoderm 21 Mg Patch) 1 patch TRANSDERMA DAILY PRN PRN Reason: NICOTINE WITHDRAWAL Last Admin: 01/01/20 17:52 Dose: 1 patch Documented by: Olanzapine (Zyprexa Zydis) 5 mg PO Q4H PRN PRN Reason: Agitation/Psychosis Last Admin: 01/12/20 22:45 Dose: 5 mg Documented by: Olanzapine (Zyprexa) 5 mg IM Q4H PRN PRN Reason: SEVERE AGITATION Last Admin: 06/10/20 05:54 Dose: 5 mg Documented by: Ondansetron HCl (Zofran) 4 mg PO Q6H PRN PRN Reason: NAUSEA AND VOMITING Last Admin: 01/02/20 03:49 Dose: 4 mg Documented by: Quetiapine Fumarate (Seroquel) 200 mg PO BEDTIME [facility] Last Admin: 01/12/20 22:45 Dose: 200 mg Documented by: Trazodone HCl (Desyrel) 50 mg PO BEDTIME PRN PRN Reason: SLEEP Ziprasidone (Geodon) 20 mg IM BID PRN PRN Reason: severe agitation Last Admin: 01/08/20 08:36 Dose: 20 mg Documented by: Ziprasidone (Geodon) 60 mg PO 0800,1700 [facility] Last Admin: 01/13/20 08:16 Dose: Not Given Documented by: Mental Status Exam MSE Comments: This is a 44-year-old female who looks easily 10 to 15 years older. She is far less disheveled and is well-kept, thanks to good nursing care. Her speech is now understandable. Mood is occasionally agitated and resistant. She refused to take her medication this morning. Affect is appropriate, however. Speech is of normal rate and volume, without dysarthria or aprosody. However, it is mildly pressured and tends to slide in and out of flight of ideas. Cognitive functions remain impaired. She is oriented only to person and short-term memory is impaired. She is bereft of insight and judgment and would quickly fall in harm's way if left to her own devices. She does not verbalize suicidal or homicidal ideation, plan or intent. Vitals/I&O/Wt Last Vital Signs Temp 97.8 F 01/13/20 06:00 Pulse 100 01/13/20 06:00 Resp 23 H 01/13/20 06:00 BP 104/60 01/13/20 06:00 Pulse Ox 98 01/13/20 06:00 01/12/20 01/13/20 01/13/20 23:59 07:59 15:59 Intake Total 120 Balance 120 Weight last 48 hrs Weight 94 lb 9.6 oz Involuntary Hold Information 96 Hour Hold: 96 Hour Involuntary Admission: Yes 96 Hour Hold Ending Date: 12/31/19 96 Hour Hold Ending Time: 19:27 21 Day Hold: 21 Day Involuntary Hold: Yes 21 Day Hold Start Date: 01/03/20 Hold Start Time: 10: Hold End Date: 02/01/20 Hold End Time: : Attestations NPU Medical Necessity Statement*: Slow progress. I still anticipate many midnights, perhaps 10-12, additional hospitalization. Time Spent in Patient Care: 16 - 35 minutes (>than 50% of time spent in counselling and/or direct pt care on unit). 30 minutes chart review, patient examination and interview. Consultation with staff. Coding Level of Care Code Acute Manager Gift for Flori Carlisle
[2020-01-13] MEDS: ziprasidone hcl 60 mg Capsule PO ×2 (09:10→16:35)
[2020-01-13] MEDS: divalproex ER 500 mg Tablet (24H) PO ×2 (09:10→16:35)
[2020-01-13 14:00] VITALS: BP 121/76; PULSE 112; RESP 18; TEMP 36.9; O2SAT 99
[2020-01-13] MEDS: quetiapine 100 mg Tablet 200 MG PO (20:55)
[2020-01-13 22:00] VITALS: BP 99/54; PULSE 117; RESP 18; TEMP 37.1; O2SAT 97
[2020-01-14] MEDS: OLANZapine 10 mg VIAL 5 MG IM (02:48)
--- NOTE | 2020-01-14 02:56 | PC.NURSE ---
pt noted at nurses desk yelling profanities at staff and other pt's. pt refused to calm down. zyprexa 5mg im given at this time.
[2020-01-14 06:00] VITALS: BP 108/69; PULSE 115; RESP 18; TEMP 36.6; O2SAT 98
--- NOTE | 2020-01-14 07:08 | PC.NURSE ---
pt was given scheduled seroquel at [facility] last evening.
[2020-01-14] MEDS: divalproex ER 500 mg Tablet (24H) PO ×2 (07:29→16:26)
[2020-01-14] MEDS: ziprasidone hcl 60 mg Capsule PO ×2 (07:29→16:26)
--- NOTE | 2020-01-14 10:23 | P.PN_ITS ---
Subjective NPU Subjective: Interval history: The patient has been snyder today. I spoke to her immediately upon my arrival. She rambled quietly and I bent down to hear her. I could not make sense of her sentences even though her speech was distinct and the words were understood. An hour later she was dysphoric and crying out. She is quite labile and she does not make any sense. We have made no progress in ameliorating her cognitive burden. Medications: Reviewed: Yes Medication Review Details: Current Medications Acetaminophen (Tylenol) 650 mg PO Q4H PRN PRN Reason: MILD PAIN Benztropine Mesylate (Cogentin) 1 mg PO BID PRN PRN Reason: Mild Extrapyramidal symptoms Calcium Carbonate (Tums) 500 mg PO Q4H PRN PRN Reason: INDIGESTION Last Admin: 01/04/20 02:59 Dose: 500 mg Documented by: Diphenhydramine HCl (Benadryl) 50 mg IM ONCE PRN PRN Reason: Severe Extrapyramidal Symptoms Diphenhydramine HCl (Benadryl) 50 mg IM Q4H PRN PRN Reason: Severe Aggression Divalproex Sodium (Depakote Er) 500 mg PO BID [facility] Last Admin: 01/14/20 07:29 Dose: 500 mg Documented by: Hydroxyzine Pamoate (Vistaril) 50 mg PO Q6H PRN PRN Reason: ANXIETY Last Admin: 12/28/19 17:03 Dose: 50 mg Documented by: Loperamide HCl (Imodium Capsule) 2 mg PO Q6H PRN PRN Reason: DIARRHEA Nicotine (Nicoderm 21 Mg Patch) 1 patch TRANSDERMA DAILY PRN PRN Reason: NICOTINE WITHDRAWAL Last Admin: 01/01/20 17:52 Dose: 1 patch Documented by: Olanzapine (Zyprexa Zydis) 5 mg PO Q4H PRN PRN Reason: Agitation/Psychosis Last Admin: 01/12/20 22:45 Dose: 5 mg Documented by: Olanzapine (Zyprexa) 5 mg IM Q4H PRN PRN Reason: SEVERE AGITATION Last Admin: 01/14/20 02:48 Dose: 5 mg Documented by: Ondansetron HCl (Zofran) 4 mg PO Q6H PRN PRN Reason: NAUSEA AND VOMITING Last Admin: 01/02/20 03:49 Dose: 4 mg Documented by: Quetiapine Fumarate (Seroquel) 200 mg PO BEDTIME [facility] Last Admin: 01/13/20 20:55 Dose: 200 mg Documented by: Trazodone HCl (Desyrel) 50 mg PO BEDTIME PRN PRN Reason: SLEEP Ziprasidone (Geodon) 20 mg IM BID PRN PRN Reason: severe agitation Last Admin: 01/08/20 08:36 Dose: 20 mg Documented by: Ziprasidone (Geodon) 60 mg PO 0800,1700 [facility] Last Admin: 01/14/20 07:29 Dose: 60 mg Documented by: Mental Status Exam MSE Comments: This is a 44-year-old female who looks easily 10 to 15 years older. She is far less disheveled and is well-kept, thanks to good nursing care. Her speech is now understandable but she rambles in an incoherent manner. Mood is occasionally agitated and she cries out and dismay. She refused to take her medication this morning. Affect is appropriate, however. Speech is of normal rate and volume, without dysarthria or aprosody. However, it is mildly pressured and tends to slide in and out of flight of ideas. Cognitive functions remain impaired. She is oriented only to person and short- term memory is impaired. She is bereft of insight and judgment and would quickly fall in harm's way if left to her own devices. She does not verbalize suicidal or homicidal ideation, plan or intent. Vitals/I&O/Wt Last Vital Signs Temp 97.8 F 01/14/20 06:00 Pulse 115 H 01/14/20 06:00 Resp 18 01/14/20 06:00 BP 108/69 01/14/20 06:00 Pulse Ox 98 01/14/20 06:00 Weight last 48 hrs Weight 94 lb 9.6 oz A&P Assessment and plan (1) Bipolar disorder: Most of her other problems are either longstanding or have gone away. Methamphetamine will always be lurking close by. Status: Acute Involuntary Hold Information 96 Hour Hold: 96 Hour Involuntary Admission: Yes 96 Hour Hold Ending Date: 12/31/19 96 Hour Hold Ending Time: 19:27 21 Day Hold: 21 Day Involuntary Hold: Yes 21 Day Hold Start Date: 01/03/20 21 Day Hold Start Time: 10:09 21 Day Hold End Date: 02/01/20 Day Hold End Time: 10:09 Attestations NPU Medical Necessity Statement*: Placement will have to be effectuated for this unfortunate woman. I anticipate 10-12 midnights additional hospitalization. Time Spent in Patient Care: Greater than 35 minutes 50 minutes Coding Level of Care Code Acute Supervisor Dry Cleaning for Flori Fwcandace Diagnoses Bipolar disorder F31.9
[2020-01-14 13:57] VITALS: BP 104/70; PULSE 106; RESP 16; O2SAT 99
[2020-01-14] MEDS: quetiapine 100 mg Tablet 200 MG PO (20:24)
[2020-01-14] MEDS: OLANZapine 5 mg ODT PO (20:24)
[2020-01-14 21:55] VITALS: BP 105/54; PULSE 111; RESP 17; TEMP 36.9; O2SAT 97
[2020-01-15 04:58] LABS: Glucose Point of Care 87 mg/dL (70-110)
[2020-01-15 06:00] VITALS: BP 99/67; PULSE 118; RESP 18; TEMP 36.9; O2SAT 98
[2020-01-15] MEDS: ziprasidone hcl 60 mg Capsule PO ×2 (07:14→16:32)
[2020-01-15] MEDS: divalproex ER 500 mg Tablet (24H) PO ×2 (07:14→16:32)
--- NOTE | 2020-01-15 12:16 | PM.NPN ---
Subjective NPU Subjective: Interval history: The patient's mood tenderness swings in a more narrow range. She can speak clearly but, if you bend down closely so that you can hear the words. Each of them is spoken without dysarthria but they seem to come out in an almost random manner, perhaps a form of word salad. I believe we are approaching her as symptomatic limit. Placement is about the only thing we can do for her. Medications: Reviewed: Yes Medication Review Details: Current Medications Acetaminophen (Tylenol) 650 mg PO Q4H PRN PRN Reason: MILD PAIN Benztropine Mesylate (Cogentin) 1 mg PO BID PRN PRN Reason: Mild Extrapyramidal symptoms Calcium Carbonate (Tums) 500 mg PO Q4H PRN PRN Reason: INDIGESTION Last Admin: 01/04/20 02:59 Dose: 500 mg Documented by: Diphenhydramine HCl (Benadryl) 50 mg IM ONCE PRN PRN Reason: Severe Extrapyramidal Symptoms Diphenhydramine HCl (Benadryl) 50 mg IM Q4H PRN PRN Reason: Severe Aggression Divalproex Sodium (Depakote Er) 500 mg PO BID [facility] Last Admin: 01/15/20 07:14 Dose: 500 mg Documented by: Hydroxyzine Pamoate (Vistaril) 50 mg PO Q6H PRN PRN Reason: ANXIETY Last Admin: 12/28/19 17:03 Dose: 50 mg Documented by: Loperamide HCl (Imodium Capsule) 2 mg PO Q6H PRN PRN Reason: DIARRHEA Nicotine (Nicoderm 21 Mg Patch) 1 patch TRANSDERMA DAILY PRN PRN Reason: NICOTINE WITHDRAWAL Last Admin: 01/01/20 17:52 Dose: 1 patch Documented by: Olanzapine (Zyprexa Zydis) 5 mg PO Q4H PRN PRN Reason: Agitation/Psychosis Last Admin: 01/14/20 20:24 Dose: 5 mg Documented by: Olanzapine (Zyprexa) 5 mg IM Q4H PRN PRN Reason: SEVERE AGITATION Last Admin: 01/14/20 02:48 Dose: 5 mg Documented by: Ondansetron HCl (Zofran) 4 mg PO Q6H PRN PRN Reason: NAUSEA AND VOMITING Last Admin: 01/02/20 03:49 Dose: 4 mg Documented by: Quetiapine Fumarate (Seroquel) 200 mg PO BEDTIME [facility] Last Admin: 01/14/20 20:24 Dose: 200 mg Documented by: Trazodone HCl (Desyrel) 50 mg PO BEDTIME PRN PRN Reason: SLEEP Ziprasidone (Geodon) 20 mg IM BID PRN PRN Reason: severe agitation Last Admin: 01/08/20 08:36 Dose: 20 mg Documented by: Ziprasidone (Geodon) 60 mg PO 0800,1700 [facility] Last Admin: 01/15/20 07:14 Dose: 60 mg Documented by: Mental Status Exam MSE Comments: This is a 44-year-old female who looks easily 10 to 15 years older. She is far less disheveled and is well-kept, thanks to good nursing care. Her speech is now understandable but she rambles in an incoherent manner. Mood is occasionally agitated and she cries out in dismay. She is intermittently compliant with her medication. Mood is peaceful now. Affect is appropriate. Speech is of normal rate and volume, without dysarthria or aprosody. However, it is mildly pressured and tends to slide in and out of flight of ideas. Cognitive functions remain impaired. She is oriented only to person and short-term memory is impaired. She is bereft of insight and judgment and would quickly fall in harm's way if left to her own devices. She does not verbalize suicidal or homicidal ideation, plan or intent. Vitals/I&O/Wt Last Vital Signs Temp 98.5 F 01/15/20 06:00 Pulse 118 H 01/15/20 06:00 Resp 18 01/15/20 06:00 BP 99/67 01/15/20 06:00 Pulse Ox 98 01/15/20 06:00 A&P Assessment and plan (1) Bipolar disorder: The patient's bipolar disorder is adequately treated. Her dementia is not. 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 Status: Acute Involuntary Hold Information 96 Hour Hold: 96 Hour Involuntary Admission: Yes 96 Hour Hold Ending Date: 12/31/19 96 Hour Hold Ending Time: 19:27 21 Day Hold: 21 Day Involuntary Hold: Yes 21 Day Hold Start Date: 01/03/20 Day Hold Start Time: 10: Hold End Date: 02/01/20 Hold End Time: 10:09 Attestations NPU Medical Necessity Statement*: This is a persistently demented patient. I anticipate 7-10 midnights additional hospital stay. 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
[2020-01-15 12:33] VITALS: BP 106/72; PULSE 111; RESP 18; TEMP 36.8; O2SAT 99
[2020-01-15] MEDS: quetiapine 100 mg Tablet 200 MG PO (19:44)
[2020-01-15] MEDS: OLANZapine 5 mg ODT PO (19:44)
[2020-01-15 20:37] VITALS: BP 92/58; PULSE 64; RESP 18; TEMP 36.7; O2SAT 98
[2020-01-16] MEDS: acetaminophen 325 mg Tablet 650 MG PO (05:55)
[2020-01-16 06:00] VITALS: BP 119/75; PULSE 110; RESP 18; TEMP 36.6; O2SAT 98
[2020-01-16] MEDS: divalproex ER 500 mg Tablet (24H) PO ×2 (08:21→16:57)
[2020-01-16] MEDS: ziprasidone hcl 60 mg Capsule PO ×2 (08:21→16:57)
[2020-01-16 12:38] VITALS: BP 102/70; PULSE 116; RESP 18; TEMP 37.1; O2SAT 96
--- NOTE | 2020-01-16 14:34 | PM.NPN ---
Subjective NPU Subjective: Interval history: The patient continues to emit verbal white noise. Out of this random word vik I am not able to decipher a signal. I believe we are very close to her asymptotic limit. She requires placement. Medications: Reviewed: Yes Medication Review Details: Current Medications Acetaminophen (Tylenol) 650 mg PO Q4H PRN PRN Reason: MILD PAIN Last Admin: 01/16/20 05:55 Dose: 650 mg Documented by: Benztropine Mesylate (Cogentin) 1 mg PO BID PRN PRN Reason: Mild Extrapyramidal symptoms Calcium Carbonate (Tums) 500 mg PO Q4H PRN PRN Reason: INDIGESTION Last Admin: 01/04/20 02:59 Dose: 500 mg Documented by: Diphenhydramine HCl (Benadryl) 50 mg IM ONCE PRN PRN Reason: Severe Extrapyramidal Symptoms Diphenhydramine HCl (Benadryl) 50 mg IM Q4H PRN PRN Reason: Severe Aggression Divalproex Sodium (Depakote Er) 500 mg PO BID [facility] Last Admin: 01/16/20 08:21 Dose: 500 mg Documented by: Hydroxyzine Pamoate (Vistaril) 50 mg PO Q6H PRN PRN Reason: ANXIETY Last Admin: 12/28/19 17:03 Dose: 50 mg Documented by: Loperamide HCl (Imodium Capsule) 2 mg PO Q6H PRN PRN Reason: DIARRHEA Nicotine (Nicoderm 21 Mg Patch) 1 patch TRANSDERMA DAILY PRN PRN Reason: NICOTINE WITHDRAWAL Last Admin: 01/01/20 17:52 Dose: 1 patch Documented by: Olanzapine (Zyprexa Zydis) 5 mg PO Q4H PRN PRN Reason: Agitation/Psychosis Last Admin: 01/15/20 19:44 Dose: 5 mg Documented by: Olanzapine (Zyprexa) 5 mg IM Q4H PRN PRN Reason: SEVERE AGITATION Last Admin: 01/14/20 02:48 Dose: 5 mg Documented by: Ondansetron HCl (Zofran) 4 mg PO Q6H PRN PRN Reason: NAUSEA AND VOMITING Last Admin: 01/02/20 03:49 Dose: 4 mg Documented by: Quetiapine Fumarate (Seroquel) 200 mg PO BEDTIME [facility] Last Admin: 01/15/20 19:44 Dose: 200 mg Documented by: Trazodone HCl (Desyrel) 50 mg PO BEDTIME PRN PRN Reason: SLEEP Ziprasidone (Geodon) 20 mg IM BID PRN PRN Reason: severe agitation Last Admin: 01/08/20 08:36 Dose: 20 mg Documented by: Ziprasidone (Geodon) 60 mg PO 0800,1700 [facility] Last Admin: 01/16/20 08:21 Dose: 60 mg Documented by: Mental Status Exam MSE Comments: This is a 44-year-old female who looks easily 10 to 15 years older. She is in good condition, thanks to good nursing care. Her speech is now understandable but she rambles incoherently. Mood is calmer now and affect is appropriate. She is more frequently compliant with her medication. Speech is of normal rate and volume, without dysarthria or aprosody. However, it rambles on incessantly, incoherently. Cognitive functions remain impaired. She is oriented only to person and short-term memory is impaired. She is bereft of insight and judgment and would quickly fall in harm's way if left to her own devices. She does not verbalize suicidal or homicidal ideation, plan or intent. Vitals/I&O/Wt Last Vital Signs Temp 98.7 F 01/16/20 12:38 Pulse 116 H 01/16/20 12:38 Resp 18 01/16/20 12:38 BP 102/70 01/16/20 12:38 Pulse Ox 96 01/16/20 12:38 A&P Assessment and plan (1) Substance-induced persisting dementia: Status: Acute (2) Bipolar disorder: Status: Acute Qualifiers: Active/Remission status: in partial remission Involuntary Hold Information 96 Hour Hold: 96 Hour Involuntary Admission: Yes 96 Hour Hold Ending Date: 12/31/19 96 Hour Hold Ending Time: 19:27 21 Day Hold: 21 Day Involuntary Hold: Yes 21 Day Hold Start Date: 01/03/20 21 Day Hold Start Time: 10:09 21 Day Hold End Date: 02/01/20 21 Day Hold End Time: 10:09 Attestations NPU Medical Necessity Statement*: This patient will require placement. Length of stay depends on how quickly this can be effectuated. I estimate at least 7 additional midnights. 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
[2020-01-16] MEDS: albuterol 8 gm MDI 2 PUFF INHALATION (18:47)
[2020-01-16 18:49] VITALS: PULSE 120; RESP 18; O2SAT 97
[2020-01-16 18:53] VITALS: PULSE 123
[2020-01-16] MEDS: quetiapine 100 mg Tablet 200 MG PO (20:40)
[2020-01-16] MEDS: OLANZapine 5 mg ODT PO (20:40)
--- NOTE | 2020-01-16 21:06 | PC.NURSE ---
pt given schedule seroquel and PRN zyprexa this evening.
[2020-01-16 22:00] VITALS: BP 105/61; PULSE 111; RESP 22; TEMP 36.8; O2SAT 98
[2020-01-17 05:15] VITALS: PULSE 117; RESP 18; O2SAT 97
[2020-01-17] MEDS: albuterol 8 gm MDI 2 PUFF INHALATION (05:15)
[2020-01-17 05:25] VITALS: PULSE 118; O2SAT 97
[2020-01-17 06:00] VITALS: BP 105/62; PULSE 128; RESP 24; TEMP 36.6; O2SAT 98
[2020-01-17] MEDS: divalproex ER 500 mg Tablet (24H) PO ×2 (07:41→17:28)
[2020-01-17] MEDS: ziprasidone hcl 60 mg Capsule PO ×2 (07:42→17:28)
[2020-01-17 14:00] VITALS: BP 106/75; PULSE 120; RESP 20; TEMP 36.9; O2SAT 95
--- NOTE | 2020-01-17 16:50 | PM.NPN ---
Subjective NPU Subjective: Interval history: Laura presents today, very emotional, talking about how she wants to get into therapy, is hopeful we will find a place where she might be able to live, though she was very focused on wanting her independence and not really wanting to be locked up. She was very robust in the conversation with continued thoughts being shared. She made it very clear that she wants to get 15 or more minutes where she can sit down and share her thoughts and connect. She was very focused on her thoughts, and the fact that he is basically not wanting her anymore and things of that nature. She reports that she will take the medication and knows she needs it, but she does not want to take it per se. She understands there are things she needs to do to be better. Mental Status Exam MSE Comments: This is an underweight, white female, with limited dress, grooming, and eye contact. No abnormal movements except for psychomotor agitation in a wheelchair. Cooperative with exam in mild to moderate distress. Speech was increased rate but decreased volume. She continued to have the behavior where she whispers and it is hard to hear her, but then she is frustrated that you do not hear her. Mood described as better; affect very labile. Thought process, mostly organized. There are times that she went off on tangents and tried to use analogies that were very hard to follow and bordered on disorganization, but vastly improved from when she was seen by this principal technical writer two weeks ago. Attention and concentration were improved, and memory is more reliable, but none were formally tested. Alert and oriented times three. Insight and judgment are improving. Impulse control is improving. Vitals/I&O/Wt Last Vital Signs Temp 99.0 F 01/17/20 20:27 Pulse 116 H 01/17/20 20:27 Resp 17 01/17/20 20:27 BP 119/68 01/17/20 20:27 Pulse Ox 94 01/17/20 20:27 A&P Additional A&P Information This is a 44 year old, white female, with a long history of psychosis, addiction, specifically methamphetamine and significant Cluster B pathology, who presents today with vast improvement over the past couple of weeks, currently open to continue treatment. Continue current medication. Continue q 15-minute checks for safety. Continue individual, group, and milieu therapy. Agree with finding appropriate placement for discharge. Involuntary Hold Information 96 Hour Hold: 96 Hour Involuntary Admission: Yes 96 Hour Hold Ending Date: 12/31/19 96 Hour Hold Ending Time: 19:27 21 Day Hold: 21 Day Involuntary Hold: Yes 21 Day Hold Start Date: 01/03/20 21 Day Hold Start Time: 10: 21 Day Hold End Date: 02/01/20 21 Day Hold End Time: 10:09 Attestations NPU Medical Necessity Statement*: Inpatient hospitalization is medically necessary, and the clinically appropriate intervention at this time. We will continue to monitor medications and make changes as indicated. We will work to find appropriate placement given her limitations outside of the hospital. Likely length of stay five to seven days. Coding Level of Care Code Acute Jet Blade Polisher for Flori Carlisle
[2020-01-17 20:27] VITALS: BP 119/68; PULSE 116; RESP 17; TEMP 37.2; O2SAT 94
[2020-01-17] MEDS: OLANZapine 5 mg ODT PO (21:14)
[2020-01-17] MEDS: quetiapine 100 mg Tablet 200 MG PO (21:15)
[2020-01-17] MEDS: neomycin-poly-bacitracin oint 28 gm 1 APPLIC TOPICAL (22:24)
[2020-01-18] MEDS: OLANZapine 5 mg ODT PO ×2 (02:16→21:56)
[2020-01-18 06:00] VITALS: BP 99/58; PULSE 122; RESP 15; TEMP 36.6; O2SAT 97
[2020-01-18] MEDS: divalproex ER 500 mg Tablet (24H) PO ×2 (09:00→17:38)
[2020-01-18] MEDS: ziprasidone hcl 60 mg Capsule PO ×2 (09:00→17:38)
[2020-01-18 09:29] VITALS: PULSE 110; RESP 18; O2SAT 98
--- NOTE | 2020-01-18 10:49 | P.PN_ITS ---
Subjective NPU Subjective: Interval history: Laura had a fairly rough day from the standpoint of her organization. When I met with her she was fairly verbose and basically went from one subject to another without pausing or making a whole lot of sense. We discussed the fact that we may have found a facility that might accept her which she reported she was open to but we we will have to get a COVID-19 test completed for that to happen. There were no new issues reported and she is eating okay and sleeping better. Mental Status Exam MSE Comments: This is an underweight, white female, with limited dress, grooming, and eye contact. No abnormal movements except for psychomotor agitation in a wheelchair. Cooperative with exam in mild to moderate distress. Speech was increased rate but decreased volume. She continued to have the behavior where she whispers and it is hard to hear her, but then she is frustrated that you do not hear her. Mood described as better; affect very labile. Thought process, mostly organized. There are times that she went off on tangents and tried to use analogies that were very hard to follow and bordered on disorganization, but vastly improved from when she was seen by this designer writer two weeks ago. Attention and concentration were improved, and memory is more reliable, but none were formally tested. Alert and oriented times three. Insight and judgment are improving. Impulse control is improving. Vitals/I&O/Wt Last Vital Signs Temp 98.8 F 01/18/20 20:40 Pulse 116 H 01/18/20 20:40 Resp 14 01/18/20 20:40 BP 98/62 01/18/20 20:40 Pulse Ox 96 01/18/20 20:40 A&P Additional A&P Information This is a 44 year old, white female, with a long history of psychosis, addiction, specifically methamphetamine and significant Cluster B pathology, who presents today with vast improvement over the past couple of weeks, currently open to continue treatment. Continue current medication. Continue q 15-minute checks for safety. Continue individual, group, and milieu therapy. Agree with finding appropriate placement for discharge. Ordered the COVID-19 test with the infectious disease unit to be administered today, which is a requirement of the facility who is considering taking her. Involuntary Hold Information 96 Hour Hold: 96 Hour Involuntary Admission: Yes 96 Hour Hold Ending Date: 12/31/19 96 Hour Hold Ending Time: 19:27 21 Day Hold: 21 Day Involuntary Hold: Yes 21 Day Hold Start Date: 01/03/20 21 Day Hold Start Time: 10: 21 Day Hold End Date: 02/01/20 Day Hold End Time: 10: Attestations NPU Medical Necessity Statement*: Inpatient hospitalization is medically necessary, and the clinically appropriate intervention at this time. We will continue to monitor medications and make changes as indicated. We will work to find appropriate placement given her limitations outside of the hospital. Likely length of stay 4-6 days. Coding Level of Care Code Acute Medical Management Specialist for Flori Carlisle
[2020-01-18 14:00] VITALS: BP 104/67; PULSE 117; RESP 18; TEMP 37; O2SAT 98
[2020-01-18] MEDS: neomycin-poly-bacitracin oint 28 gm 1 APPLIC TOPICAL (17:39)
[2020-01-18 20:40] VITALS: BP 98/62; PULSE 116; RESP 14; TEMP 37.1; O2SAT 96
[2020-01-18] MEDS: hyDROXYzine 25 mg Capsule 50 MG PO (21:56)
[2020-01-18] MEDS: quetiapine 100 mg Tablet 200 MG PO (21:56)
[2020-01-18] MEDS: trazodone 50 mg Tablet PO (21:57)
[2020-01-18] MEDS: acetaminophen 325 mg Tablet 650 MG PO (22:57)
[2020-01-19 06:00] VITALS: BP 95/63; PULSE 103; RESP 16; TEMP 36.5; O2SAT 96
[2020-01-19] MEDS: divalproex ER 500 mg Tablet (24H) PO ×2 (09:13→17:39)
[2020-01-19] MEDS: ziprasidone hcl 60 mg Capsule PO ×2 (09:13→17:39)
[2020-01-19] MEDS: neomycin-poly-bacitracin oint 28 gm 1 APPLIC TOPICAL ×2 (09:13→17:39)
--- NOTE | 2020-01-19 10:31 | P.PN_ITS ---
Subjective NPU Subjective: Interval history: Laura continues to ramble in conversation. But is clearly less angry and obstinate. She is cooperative with eating and self- care and spends most of her time now asking questions about the place that she might go and what opportunities will exist there. She continues to have moments of sadness and thoughts about relationships lost. Most of the conversation was a sort of stream of consciousness but she clearly appreciates the opportunity to sit down and speak with someone. Mental Status Exam MSE Comments: This is an underweight, white female, with limited dress, grooming, and eye contact. No abnormal movements except for decreasing psychomotor agitation in a wheelchair. Cooperative with exam in mild distress from time to time. Speech was more normal rate and volume. She continued to have the behavior where she whispers and it is hard to hear her, but less often. Mood described as better; affect less labile. Thought process, disorganized at times but often redirectable. There are times that she went off on tangents and tried to use analogies that were very hard to follow, but vastly improved from when she was seen by this group underwriter two weeks ago. Attention and concentration were improved, and memory is more reliable, but none were formally tested. Alert and oriented times three. Insight and judgment are improving. Impulse control is i mproving. Vitals/I&O/Wt Last Vital Signs Temp 98.6 F 01/19/20 19:59 Pulse 104 H 01/19/20 20:48 Resp 16 01/19/20 20:48 BP 115/73 01/19/20 19:59 Pulse Ox 99 01/19/20 20:48 01/19/20 01/19/20 01/20/20 14:59 22:59 06:59 Intake Total 120 / 120 Balance 120 / 120 A&P Additional A&P Information This is a 44 year old, white female, with a long history of psychosis, addiction, specifically methamphetamine and significant Cluster B pathology, who presents today with vast improvement over the past couple of weeks, currently open to continue treatment. Continue current medication. Continue q 15-minute checks for safety. Continue individual, group, and milieu therapy. Agree with finding appropriate placement for discharge. The COVID-19 test returned negative. Involuntary Hold Information 96 Hour Hold: 96 Hour Involuntary Admission: Yes 96 Hour Hold Ending Date: 12/31/19 96 Hour Hold Ending Time: 19:27 21 Day Hold: 21 Day Involuntary Hold: Yes 21 Day Hold Start Date: 01/03/20 21 Day Hold Start Time: 10: 21 Day Hold End Date: 02/01/20 21 Day Hold End Time: 10:09 Attestations NPU Medical Necessity Statement*: Inpatient hospitalization is medically necessary, and the clinically appropriate intervention at this time. We will continue to monitor medications and make changes as indicated. We will work to find appropriate placement given her limitations outside of the hospital. Likely length of stay 3-5 days. Coding Level of Care Code Acute Scientific Database Curator for Flori Carlisle
[2020-01-19 14:00] VITALS: BP 103/67; PULSE 115; RESP 20; TEMP 36.8; O2SAT 96
[2020-01-19 14:38] LABS: Coronavirus Lab Test PTC SEE REPORT
[2020-01-19 19:59] VITALS: BP 115/73; PULSE 118; RESP 16; TEMP 37; O2SAT 95
[2020-01-19 20:48] VITALS: PULSE 104; RESP 16; O2SAT 99
[2020-01-19] MEDS: trazodone 50 mg Tablet PO (21:37)
[2020-01-19] MEDS: quetiapine 100 mg Tablet 200 MG PO (21:37)
[2020-01-19] MEDS: OLANZapine 5 mg ODT PO (21:37)
[2020-01-19] MEDS: hyDROXYzine 25 mg Capsule 50 MG PO (21:37)
[2020-01-20] MEDS: diphenhydrAMINE 50 mg/mL SDV 1mL IM (03:08)
[2020-01-20] MEDS: OLANZapine 10 mg VIAL 5 MG IM (03:09)
--- NOTE | 2020-01-20 03:10 | PC.NURSE ---
5mg Zyprexa given \ IM for agitation 5mg Zyprexa wasted. 5omg Benadryl given IM for agitation.
[2020-01-20 06:00] VITALS: BP 92/56; PULSE 111; RESP 18; TEMP 36.4; O2SAT 96
[2020-01-20] MEDS: divalproex ER 500 mg Tablet (24H) PO ×2 (08:20→18:45)
[2020-01-20] MEDS: ziprasidone hcl 60 mg Capsule PO ×2 (08:20→18:41)
[2020-01-20] MEDS: neomycin-poly-bacitracin oint 28 gm 1 APPLIC TOPICAL (08:38)
[2020-01-20 09:05] VITALS: PULSE 112; RESP 18; O2SAT 97
[2020-01-20] MEDS: albuterol 8 gm MDI 2 PUFF INHALATION ×2 (09:10→19:38)
--- NOTE | 2020-01-20 10:56 | PM.NPN ---
Subjective NPU Subjective: Interval history: Laura was pleased to hear that her COVID test was negative. She spent the time yesterday wondering how the decisions are made as to where she can go and we once again reviewed the lack of availability and that she is probably [place] and that this place has a history with her. She would like to be closer to home but she reports that she understands that the right thing to do is to go to this facility allow them to help her get herself stabilized and later on if the distance is a problem she can make a change then. She is eating and sleeping fine. Mental Status Exam MSE Comments: This is an underweight, white female, with limited dress, grooming, and eye contact. No abnormal movements except for decreasing psychomotor agitation in a wheelchair. Cooperative with exam in mild distress from time to time. Speech was more normal rate and volume. She continued to have the behavior where she whispers and it is hard to hear her, but less often. Mood described as fine; affect less labile. Thought process, disorganized at times but often redirectable. There are times that she went off on tangents and tried to use analogies that were very hard to follow, but vastly improved from when she was seen by this financial underwriter two weeks ago. Attention and concentration were improved, and memory is more reliable, but none were formally tested. Alert and oriented times three. Insight and judgment are improving. Impulse control is improving. Vitals/I&O/Wt Last Vital Signs Temp 98.6 F 01/20/20 22:00 Pulse 118 H 01/20/20 22:00 Resp 18 01/20/20 22:00 BP 103/67 01/20/20 22:00 Pulse Ox 96 01/20/20 22:00 Weight last 48 hrs Weight 52.435 kg A&P Additional A&P Information This is a 44 year old, white female, with a long history of psychosis, addiction, specifically methamphetamine and significant Cluster B pathology, who presents today with vast improvement over the past couple of weeks, currently open to continue treatment. Continue current medication. Continue q 15-minute checks for safety. Continue individual, group, and milieu therapy. Agree with finding appropriate placement for discharge. The COVID-19 test returned negative.We will work with treatment team on a discharge date and plan. Involuntary Hold Information 96 Hour Hold: 96 Hour Involuntary Admission: Yes 96 Hour Hold Ending Date: 12/31/19 96 Hour Hold Ending Time: 19:27 21 Day Hold: 21 Day Involuntary Hold: Yes 21 Day Hold Start Date: 01/03/20 21 Day Hold Start Time: 10: 21 Day Hold End Date: 02/01/20 Day Hold End Time: : Attestations NPU Medical Necessity Statement*: Inpatient hospitalization is medically necessary, and the clinically appropriate intervention at this time. We will continue to monitor medications and make changes as indicated. We will work to find appropriate placement given her limitations outside of the hospital. Likely length of stay 2-4 days.Hopeful for opportunity for discharge in the next 48 hours. Coding Level of Care Code Acute Gsa Coordinator for Flori Carlisle
[2020-01-20 13:06] VITALS: BP 97/59; PULSE 115; RESP 18; TEMP 37.2; O2SAT 95
[2020-01-20 19:39] VITALS: PULSE 88; RESP 18; O2SAT 96
[2020-01-20] MEDS: quetiapine 100 mg Tablet 200 MG PO (21:11)
[2020-01-20] MEDS: OLANZapine 5 mg ODT PO (21:11)
[2020-01-20] MEDS: trazodone 50 mg Tablet PO (21:11)
[2020-01-20 22:00] VITALS: BP 103/67; PULSE 118; RESP 18; TEMP 37; O2SAT 96
--- NOTE | 2020-01-20 22:53 | PC.NURSE ---
Pt was given scheduled Seroquel at [facility] along with PRN Trazodone and PRN Zyprexa.
[2020-01-21 06:00] VITALS: BP 98/58; PULSE 98; RESP 16; TEMP 36.4; O2SAT 97
[2020-01-21 09:39] VITALS: PULSE 90; O2SAT 97
[2020-01-21] MEDS: divalproex ER 500 mg Tablet (24H) PO (09:47)
[2020-01-21] MEDS: ziprasidone hcl 60 mg Capsule PO (09:47)
--- NOTE | 2020-01-21 12:17 | PC.SOCIAL ---
Important Medicare Message Patient signed page 2 Important Medicare Message, verbalized understanding. Original to patient and copy in chart.
--- NOTE | 2020-01-21 12:24 | PM.NDC ---
Diagnoses at Discharge Discharge Diagnosis (1) Substance-induced persisting dementia: Status: Acute Problem details: Placement should be effectuated. (2) Bipolar disorder: Status: Acute Qualifiers: Active/Remission status: in partial remission Reason for Visit Reason for Visit: 96 hr hold Brief History: History of Present Illness Laura Bradley is a 44 year old female who presented to the hospital from an outside hospital. Some issues existed in that transfer secondary to us not being given a full accounting for her physical condition. She presents in a wheelchair, and unable to really get around other than in that state, being assisted with her activities of daily living and floridly psychotic. She is able to provide no meaningful historical data, only making bizarre statements, many of them in a hypersexual manner, others in an angry cursing manner, with threats and initially saying she did not want to stay. This program writer evaluated her and deemed her unable to make informed consent, floridly psychotic, and an obvious risk to herself and others, with an inability to care for herself. We will evaluate and try to get collateral information from outside resources. She has never been to this hospital, so she lacks any historical data. Our understanding is, that she has a long history of methamphetamine abuse, and psychotic disorder, likely schizophrenia, and apparently some sort of accident that led to her having some kind of hemiplegia which is unclear at this point, otherwise. PSYCHIATRIC HISTORY: Reportedly multiple hospitalizations in the [place] area prior to this time. She is currently listed as being on medications, but it is unclear and suggested by the referral, that she had not been taking her medication. SUBSTANCE ABUSE HISTORY: Endorsed history on the referral of significant methamphetamine addiction. Other psychosocial history, family history, developmental history, are unable to be obtained. Hospital Course Hospital Course Laura presented from outside hospital on transfer for definitive treatment of her psychosis, addiction and altered mental status. She was admitted to the neuropsychiatric unit for definitive treatment of those issues. When she presented she was floridly psychotic and unable to care for herself independently. She slowly acclimated to the individual, group and milieu therapies provided. During the hospitalization Seroquel nightly was added Geodon was titrated and was purportedly her previous medication and her Depakote was increased. She was also using small doses of trazodone and Vistaril to augment those other medications. She had marked improvement. Prior to the hospitalization there were routine laboratory studies which were within normal limits except for a few outliers. Additionally there was a general medical evaluation which was also within normal limits and revealed no new acute processes. Discharge Summary At the time of discharge, lethality and psychosis were absent. Mood and anxiety were well managed and a plan to avoid all drugs of abuse and follow-up with outpatient recommendations was reported. Patient was evaluated and deemed to be absent all credible lethality and had achieved the maximum benefit of the inpatient stay so the patient was discharged. Involuntary Hold Information 96 Hour Hold: 96 Hour Involuntary Admission: Yes 96 Hour Hold Ending Date: 12/31/19 96 Hour Hold Ending Time: 19:27 21 Day Hold: 21 Day Involuntary Hold: Yes 21 Day Hold Start Date: 01/03/20 21 Day Hold Start Time: 10:04 21 Day Hold End Date: 02/01/20 Day Hold End Time: 10:09 Mental Status Exam MSE Comments: This is an underweight, white female, with limited dress, grooming, and eye contact. No abnormal movements except for decreasing psychomotor agitation in a wheelchair. Cooperative with exam in mild distress from time to time. Speech was more normal rate and volume. She continued to have the behavior where she whispers and it is hard to hear her, but less often. Mood described as happy; affect congruent and less labile. Thought process, disorganized at times but often redirectable. There are times that she went off on tangents and tried to use analogies that were very hard to follow, but vastly improved from when she was seen by this program writer weeks ago. Attention and concentration were improved, and memory is more reliable, but none were formally tested. Alert and oriented times three. Insight and judgment are improving. Impulse control is improving. Discharge Data Vitals: Last Vital Signs Temp 97.5 F L 01/21/20 06:00 Pulse 90 01/21/20 09:39 Resp 16 01/21/20 06:00 BP 98/58 01/21/20 06:00 Pulse Ox 97 01/21/20 09:39 Discharge Plan Discharge Patient Disposition: Home, Self-Care Condition: Stable Prescriptions: New trazodone 50 mg Tablet 50 mg PO BEDTIME PRN (Reason: Sleep) 30 Days Qty: 30 RF: 1 ziprasidone HCl 60 mg Capsule 60 mg PO 0800,1700 30 Days Qty: 60 RF: 1 quetiapine 200 mg tablet 200 mg PO BEDTIME 30 Days Qty: 30 RF: 1 divalproex 500 mg Tablet Extended Release 24 Hr 500 mg PO BID 30 Days Qty: 60 RF: 1 hydroxyzine pamoate 25 mg Capsule 50 mg PO Q6H PRN (Reason: Anxiety) 30 Days Qty: 120 RF: 1 Continued albuterol sulfate 90 mcg/actuation HFA aerosol inhaler 2 puff INHALATION PRN 30 Days Qty: 1 RF: 1 Advair HFA 230-21 mcg/actuation Hfa Aerosol Inhaler 2 puff INHALATION Q12H 30 Days Qty: 1 RF: 1 Discontinued ziprasidone HCl 20 mg capsule 20 mg PO BID RF: 0 divalproex 125 mg capsule, delayed rel sprinkle 125 mg PO BID RF: 0 Discharge Orders: Discharge Order (Routine); Ordered 01/21/20 Ordered By: Ruben Vergara Discharge Diet: Usual diet Discharge Activity: Resume usual activity and Wheelchair as instructed Activity Restrictions/Additional Instructions: Will be going to: [facility] [id number] [place] [address] Would advise for you to be linked with case management service and psychiatry medication management in your area. You were pleased with [facility] services in the past but the [facility] staff may know of another one. You may call here with any other questions [phone] Discharge Date/Time: 01/21/20 15:29 Discharge Attestations NPU Time Spent in Discharge Care*: less than 30 min Specific Discharge Activities: Specific discharge activities: educating patient, discussing with rehabilitation case coordinator/social workers/dc planners, documenting/other paperwork and evaluating patient/reviewing data Coding Level of Care Code Acute Talent Acquisition Specialist for [facility] Diagnoses Substance-induced persisting dementia F19.97 Bipolar disorder F31.9 Active/Remission status: in partial remission
--- NOTE | 2020-01-21 13:38 | PC.SOCIAL ---
Medicaid ride called, trip ID# [id number] Pickup window ends at 4:39pm Can call [phone] to check on ride
[2020-01-21 15:14] VITALS: PULSE 90; O2SAT 97
== END 2020-01-21 15:29 | disposition home or self-care (01) | DRG 885 ==
PROVIDERS: Psychiatry & Neurology Psychiatry; Admitting Provider Psychiatry & Neurology Psychiatry; Visit Provider Psychiatry & Neurology Psychiatry
DX: F23 Brief psychotic disorder (principal); F19.9 Other psychoactive substance use, unspecified; F41.9 Anxiety disorder, unspecified; F31.9 Bipolar disorder, unspecified; F17.210 Nicotine dependence, cigarettes, uncomplicated
CPT/HCPCS: 12345; 36415; 36416; 80164; 82962; 87635; 94640; 96372; J1200; J2060; J3486; J3490; J3535; Q0162

== ENCOUNTER 2022-05-17 06:00 | Outpatient (RCR) | payer MEDICARE, MEDICAID, SELFPAY | END 2022-05-31 23:59 | disposition home or self-care (01) | LOC: SOT 06:00 | PROVIDERS: Visit Provider Nurse Practitioner Family | DX: G81.11 Spastic hemiplegia affecting right dominant side (principal) | CPT/HCPCS: 97167; 97530 ==